=== PATIENT | female | born 1955 | race Caucasian/White ===

== ENCOUNTER 2016-10-18 20:35 | Emergency (ER) | payer BC ==
[2016-10-18 20:55] VITALS: BP 146/80
--- NOTE | 2016-10-18 21:39 | UC ---
UC General HPI - HPI Summary HPI Summary: patients nose became stuffy this afternoon, no other complaints. - History of Current Complaint Chief Complaint: UCGeneralIllness Stated Complaint: CONGESTED Time Seen by Provider: 10/18/16 21:20 Hx Obtained From: Patient Onset/Duration: Sudden Onset, Lasting Hours Timing: Constant Onset Severity: Mild Current Severity: Moderate Pain Intensity: 4 - Allergy/Home Medications Allergies/Adverse Reactions: Allergies Allergy/AdvReac Type Severity Reaction Status Date / Time Adhesive Tape Allergy Rash Verified 10/18/16 20:56 NSAIDs Allergy Unknown Verified 10/18/16 20:56 Reaction Details Povidone Iodine Allergy Rash Verified 10/18/16 20:56 [From Betadine] Pregabalin [From Lyrica] Allergy See Comment Verified 10/18/16 20:56 Sulfa Antibiotics Allergy Rash Verified 10/18/16 20:56 Home Medications: Home Medications Calcium Citrate TAB* [Citracal TAB*] 200 mg PO BID 10/18/16 [History Confirmed 10/18/16] Cholecalciferol TAB* [Vitamin D TAB*] 5,000 units PO DAILY 10/18/16 [History Confirmed 10/18/16] Cyclobenzaprine TAB* [Flexeril TAB*] 10 mg PO TID PRN 10/18/16 [History Confirmed 10/18/16] Docusate CAP* [Colace Cap*] 100 mg PO DAILY 10/18/16 [History Confirmed 10/18/16 ] Escitalopram Oxalate [Lexapro] 20 mg PO DAILY 10/18/16 [History Confirmed ] Levothyroxine TAB* [Synthroid TAB*] 100 mcg PO DAILY 10/18/16 [History Confirmed 10/18/16] Pramipexole TAB* [Mirapex TAB*] 1.5 mg PO BEDTIME 10/18/16 [History Confirmed ] Senna TAB* [Senokot TAB*] 1 tab PO DAILY 10/18/16 [History Confirmed 10/18/16] fentaNYL PATCH 12 MCG/HR * [Duragesic Patch 12 Mcg/Hr *] 12 mcg TRANSDERM Q72H 10/18/16 [History Confirmed 10/18/16] oxyCODONE TAB* [Roxycodone TAB 5 mg*] 15 mg PO Q8H PRN 10/18/16 [History Confirmed 10/18/16] PMH/Surg Hx/FS Hx/Imm Hx Previously Healthy: Yes Endocrine History Of: Reports: Thyroid Disease - Surgical History Surgical History: Yes Surgery Procedure, Year, and Place: 2 back surgeries. tubal ligation. lap band , gastric bypass. bunion removed. hernia repair. gall bladder removed - Family History Known Family History: Positive: Hypertension - Social History Alcohol Use: None Substance Use Type: None Smoking Status (MU): Never Smoked Tobacco Review of Systems Constitutional: Negative Skin: Negative Eyes: Negative ENT: Other - nasal congestion Respiratory: Negative Cardiovascular: Negative Gastrointestinal: Negative Genitourinary: Negative Motor: Negative Neurovascular: Negative Musculoskeletal: Negative Neurological: Negative Psychological: Negative All Other Systems Reviewed And Are Negative: Yes Physical Exam Triage Information Reviewed: Yes Appearance: No Pain Distress, Ill-Appearing, Obese Vital Signs: Initial Vital Signs Temp 98.8 F 10/18/16 20:49 Pulse 55 10/18/16 20:49 Resp 18 10/18/16 20:49 BP 146/80 10/18/16 20:49 Pulse Ox 97 10/18/16 20:49 Vital Signs Reviewed: Yes Eye Exam: Normal Eyes: Positive: Conjunctiva Clear ENT Exam: Normal ENT: Positive: Normal ENT inspection, Hearing grossly normal, Pharynx normal, Nasal congestion - nares red and inflammed, TMs normal Dental Exam: Normal Neck exam: Normal Neck: Positive: Supple, Nontender, No Lymphadenopathy Respiratory Exam: Normal Respiratory: Positive: Chest non-tender, Normal breath sounds, No respiratory distress, No accessory muscle use, Wheezing, Inspiration Cardiovascular Exam: Normal Cardiovascular: Positive: RRR, No Murmur, Pulses Normal Abdominal Exam: Normal Abdomen Description: Positive: Nontender, No Organomegaly, Soft Bowel Sounds: Positive: Present Musculoskeletal Exam: Normal Musculoskeletal: Positive: Strength Intact, ROM Intact, No Edema Neurological Exam: Normal Neurological: Positive: Alert, Muscle Tone Normal Psychological Exam: Normal Skin Exam: Normal Course/Dx - Course Course Of Treatment: hx obtained, exam performed, meds prescribed for nasal congestion and wheezing - Differential Dx - Multi-Symptom Provider Diagnoses: nasal congestion. wheezing Discharge - Discharge Plan Condition: Stable Disposition: HOME Patient Education Materials: Cold Symptoms (ED) Additional Instructions: start the prednisone tomorrow. I recommend using your vicks tonight to help open the nasal passages. Follow up if you develop worsening symtpoms
== END 2016-10-18 21:49 | disposition home or self-care (01) ==
LOC: MERGE 20:35 → UCCORT 20:35
DX: R09.81 Nasal congestion (principal); R06.2 Wheezing; E07.9 Disorder of thyroid, unspecified; Z98.84 Bariatric surgery status; Z90.49 Acquired absence of other specified parts of digestive tract; Z88.6 Allergy status to analgesic agent; Z88.2 Allergy status to sulfonamides
CPT/HCPCS: 99202; G0463

== ENCOUNTER 2016-12-26 06:25 | Day surgery (SDC) | payer BC ==
[~2016-12-26 06:25] MED LIST: Buffered Lidocaine 1% SYR 3ML* 3 ML/SYR SYRINGE INTRADERM ONE; Famotidine IV* 10 MG/ML 2 ML (20 mg) IV ONE; Morphine INJ* 2 MG/ML 1 ML SYRINGE IV PRN; PROCHLORPERAZINE INJ 5 MG/ML 2 ML VIAL IV PRN; oxyCODONE TAB* 5 MG TAB PO PRN
[2016-12-26] MEDS ORDERED: Famotidine IV* 10 MG/ML 2 ML (20 mg) ONE (06:29)
[2016-12-26] MEDS ORDERED: Heparin VIAL(*) 5000 UNITS/ML VIAL (FIVE THOUSAND) ONE (06:39)
[2016-12-26] MEDS ORDERED: Bupivacaine 0.25% SDV* 30 ML ONE (07:17)
[2016-12-26] MEDS ORDERED: Clindamycin 900 MG IVPREMIX(* 900 MG/50 ML SDV IV ONE (07:24)
[2016-12-26] MEDS ORDERED: Midazolam* 1 MG/ML 5 ML VIAL (5 MG) ONE (07:27)
[2016-12-26] MEDS ORDERED: KETAMINE HCL* 50 MG/ML 10 ML VIAL ONE (07:27)
[2016-12-26] MEDS ORDERED: fentaNYL* 50 MCG/ML 2 ML VIAL (100 MCG VIAL) ONE ×4 (07:27→11:37)
[2016-12-26] MEDS ORDERED: Ondansetron INJ* 2 MG/ML VIAL ONE (08:28)
[2016-12-26] MEDS ORDERED: Propofol* 10 MG/ML 20 ML BTL IV PUSH ONE (08:28)
[2016-12-26] MEDS ORDERED: Lidocaine 2% PF * 5 ML VIAL ONE (08:28)
[2016-12-26] MEDS ORDERED: Glycopyrrolate IV* 0.2 MG/ML 1 ML VIAL ONE (08:28)
[2016-12-26] MEDS ORDERED: Dexamethasone IV* 4 MG/ML 1 ML (4 MG) ONE (08:28)
[2016-12-26] MEDS ORDERED: EPHEDrine (Pressors)* 50 MG/ML VIAL ONE (08:30)
[2016-12-26] MEDS: fentaNYL* 50 MCG/ML 2 ML VIAL (100 MCG VIAL) IV PRN ×3 (11:08→11:42)
[2016-12-26] MEDS ORDERED: oxyCODONE ORAL.SOLN* 5 MG/5 ML UDC ONE (11:38)
[2016-12-26 12:39] VITALS: BP 130/82
--- NOTE | 2016-12-31 13:03 | RAD ---
INDICATION: Intraoperative fluoroscopy RIGHT hand. COMPARISON: No relevant prior exams available on the [facility] PACS for comparison. TECHNIQUE: Less than one hour fluoroscopy. FINDINGS: Spot images document resection of the trapezium. IMPRESSION: Procedural fluoroscopy. CPT II Codes: 6045F
== END 2016-12-26 13:00 | disposition home or self-care (01) ==
LOC: OREAST 06:25
PROVIDERS: ATTEND Plastic Surgery
DX: M18.11 Unilateral primary osteoarthritis of first carpometacarpal joint, right hand (principal); I10 Essential (primary) hypertension; E03.9 Hypothyroidism, unspecified; G89.29 Other chronic pain
CPT/HCPCS: 76000; 88304; 88311; A9270-GY; J1100; J1644; J2250; J2405; J2704; J3010

== ENCOUNTER 2017-02-10 10:00 | Emergency (ER) | payer BC ==
[2017-02-10 10:33] VITALS: BP 133/68
--- NOTE | 2017-02-10 11:36 | ED ---
Lower Extremity - HPI Summary HPI Summary: 61 yr old female with the complaint of Shortness of breath and worsening leg edema. She states she has been on lasix longstanding but it doesnt seem to be working now. The patient is having trouble with some blisters forming on legs, worsening edema and she is short of breath with exertion. She denies a history of CAD. She states her doctor was on jury duty today and not available. She denies chest pain. - History of Current Complaint Chief Complaint: UCLowerExtremity Stated Complaint: BILATERAL LEG/SKIN COMPLAINT Time Seen by Provider: 02/10/17 11:03 Hx Last Menstrual Period: n/a - Allergies/Home Medications Allergies/Adverse Reactions: Allergies Allergy/AdvReac Type Severity Reaction Status Date / Time Povidone Iodine Allergy Severe Rash Verified 02/10/17 10:34 [From Betadine] Pregabalin [From Lyrica] Allergy Severe See Comment Verified 02/10/17 10:34 Sulfa Antibiotics Allergy Severe Rash Verified 02/10/17 10:34 Adhesive Tape Allergy Intermediate Blisters Verified 02/10/17 10:34 [Tegaderm Dressing] Amoxicillin [From Augmentin] Allergy Intermediate Rash And Verified 02/10/17 10: 34 Itching Clavulanic Acid Allergy Intermediate Rash And Verified 02/10/17 10:34 [From Augmentin] Itching Doxycycline Allergy Intermediate Itching Verified 02/10/17 10:34 NSAIDs Allergy Intermediate ULCER/ Verified 02/10/17 10:34 GASTRIC BYPASS HISTORY SURGICAL PREP Allergy Severe ITCHY RASH Uncoded 02/10/17 10:34 BANDAID ADHESIVE Allergy Intermediate ITCHY Uncoded 02/10/17 10:34 REDNESS ENVIRONMENTAL Allergy Intermediate ITCHY Uncoded 02/10/17 10:34 WATERY EYES, STUFFY Home Medications: Home Medications Spironolactone 50 mg PO DAILY 02/10/17 [History Confirmed 02/10/17] PMH/Surg Hx/FS Hx/Imm Hx Endocrine/Hematology History: Reports: Hx Thyroid Disease, Hx Anemia - takes iron Denies: Hx Diabetes Cardiovascular History: Reports: Hx Rheumatic Fever - A CHILD Denies: Hx Hypertension, Hx Pacemaker/ICD Respiratory History: Reports: Hx Chronic Bronchitis, Hx Pneumonia, Hx Sleep Apnea GI History: Reports: Hx Gastroesophageal Reflux Disease - OCCASSIONAL, NO PRN MEDS USED, Hx Ulcer, Other GI Disorders - BARIATRIC SURGERY,RECENT 30# WT GAIN History: Denies: Hx Renal Disease Musculoskeletal History: Reports: Hx Arthritis, Hx Rheumatoid Arthritis, Hx Back Problems, Hx Bursitis - LEFT HIP, Hx Tendonitis, Other Musculoskeletal History - NECK PAIN Sensory History: Reports: Hx Contacts or Glasses - GLASSES Denies: Hx Hearing Aid Opthamlomology History: Reports: Hx Contacts or Glasses - GLASSES Neurological History: Reports: Other Neuro Impairments/Disorders - PAIN CLINIC INJECTIONS / DORSAL STIM 2013 Psychiatric History: Reports: Hx Anxiety - CONTROL WITH MEDS, Hx Depression Denies: Hx Panic Disorder - Surgical History Surgery Procedure, Year, and Place: 12/2015 L2-L3 FUSION. 08/2014 DORSAL COLUMN STIMULATOR PUT IN STIMULATOR AND BATTERY WAS REMOVED [place]/27[place] [facility] CID. 2014 SURGERY RIGHT FOOT [facility]. 04/2013 [place] [facility] RIGHT [place] - GAN[place]ION CYST[place] [facility]. 03/1985 BILATERAL [place]AL [place] [facility] [facility] 2008 CONVERTED [place] GASTRIC [place]PASS[place] [facility] LAPAROSCOPIC [place]OM[place] [facility]. 05/2011 UMBILICAL [place] [facility] 04/2012 BUNION REPAIR- RIGHT FOOT W/ SCREW, [place]. 09/2013 RIGHT FOOT HAMMER TOE REPAIR, [place]. 04/2014 Dorsal Column Stimulator Trial[place] [facility]2014 Permanent Dorsal Column Stimulator Hx Anesthesia Reactions: No Infectious Disease History: Yes Infectious Disease History: Reports: Hx Clostridium Difficile Denies: Traveled Outside the in Last 30 Days - Family History Known Family History: Positive: Hypertension - Social History Alcohol Use: None Substance Use Type: Reports: None Substance Use Comment - Amount & Last Used: fentanyl patch and oxycodone Smoking Status (MU): Never Smoked Tobacco Have You Smoked in the Last Year: No Review of Systems Constitutional: Negative Positive: Shortness Of Breath Positive: Edema - both legs Positive: Other - small blisters legs All Other Systems Reviewed And Are Negative: Yes Physical Exam Triage Information Reviewed: Yes Vital Signs On Initial Exam: Initial Vitals Temp Pulse Resp BP Pulse Ox 97.8 F 60 18 133/68 97 02/10/17 10:25 02/10/17 10:25 02/10/17 10:25 02/10/17 10:25 02/10/17 10:25 Vital Signs Reviewed: Yes Appearance: Positive: Well-Appearing, No Pain Distress Skin: Positive: Warm, Other - small blisters on legs Head/Face: Positive: Normal Head/Face Inspection Eyes: Positive: EOMI, ALEXIS ENT: Positive: Normal ENT inspection Neck: Positive: Supple, Nontender Respiratory/Lung Sounds: Positive: Decreased Breath Sounds - right base Cardiovascular: Positive: RRR. Negative: Murmur Abdomen Description: Positive: Nontender Musculoskeletal: Positive: Edema Left - leg, Edema Right - leg Neurological: Positive: Normal, Sensory/Motor Intact, Alert, Oriented to Person Place, Time, Normal Gait Diagnostics - Vital Signs Vital Signs Temp Pulse Resp BP Pulse Ox 02/10/17 10:25 97.8 F 60 18 133/68 97 - Laboratory Lab Statement: Any lab studies that have been ordered have been reviewed, and results considered in the medical decision making process. Lower Extremity Course/Dx - Course Course Of Treatment: 61 yr old with exertional shortness of breath and bilateral leg edema. She is getting worse per the patient. I recommend she go to ER by ambulance for further work up. She signed out AMA with risks of CHF, heart attack, blood clots. kidney failure, and disability understood. - Diagnoses Provider Diagnoses: Shortness of breath, Leg edema Discharge - Discharge Plan Condition: Good Disposition: AGAINST MEDICAL ADVICE Referrals: Kriss Meléndez MD [Primary Care Provider] -
== END 2017-02-10 11:20 | disposition left against medical advice (07) ==
LOC: UCCORT 10:00
DX: R06.02 Shortness of breath (principal); R60.9 Edema, unspecified; Z98.84 Bariatric surgery status; D64.9 Anemia, unspecified; F41.9 Anxiety disorder, unspecified; Z53.20 Procedure and treatment not carried out because of patient's decision for unspecified reasons
CPT/HCPCS: 99212; G0463

== ENCOUNTER → 2017-02-11 15:28 | Emergency (ER) | payer BC ==
--- NOTE | 2017-02-11 16:20 | RAD ---
Indication: Shortness of breath for several months. Comparison: December 29, 2014 Technique: Upright AP 1600 hours Report: Severe elevation of the RIGHT hemidiaphragm with interval worsening. Normal variant interposition of bowel loops between the liver and the RIGHT diaphragm as on the prior exam. Moderate RIGHT basilar atelectasis. Clear LEFT lung. Negative for pleural effusions. Negative for pneumothorax. Negative for cardiomegaly. Mild leftward shift of the mediastinum due to magnitude of RIGHT hemidiaphragm elevation. Unremarkable central pulmonary vasculature. IMPRESSION: Severe elevation of the RIGHT hemidiaphragm with interval worsening and associated partial atelectasis of the RIGHT lung and mild leftward mediastinal shift.
[2017-02-11 16:38] LABS: Hematocrit 39 % (35-47); Hemoglobin 12.8 g/dl (12.0-16.0); Mean Corpuscular HGB Conc 33 g/dl (31-36); Mean Corpuscular Hemoglobin 29 pg (27-31); Mean Corpuscular Volume 88 fL (80-97); Mean Platelet Volume 8 um3 (7.4-10.4); Red Blood Count 4.38 10^6/ul (4.0-5.4); Red Cell Distribution Width 13 % (10.5-15)
[2017-02-11 16:54] LABS: Albumin 3.6 g/dL (3.2-5.2); BUN/Creatinine Ratio 20.3 (8-20); Calcium 9.1 mg/dL (8.6-10.3); EGFR African American 132.8 (>60); EGFR Non-African American 103.3 (>60); Potassium 3.7 mmol/L (3.5-5.0); Total Bilirubin 0.5 mg/dL (0.2-1.0); Total Protein 6.6 g/dL (6.4-8.9)
[2017-02-11 17:36] VITALS: BP 117/67
--- NOTE | 2017-02-11 18:43 | ED ---
Clary Manuel Thomas, scribed for Jeff Bell MD on 02/11/17 at 1547 . Shortness of Breath - HPI Summary HPI Summary: Pt is a 61 y/o F presenting to the ED c/o SOB and pedal edema that began 4 days ago. She has had similar Sx that have been intermittent for the past year. Her SOB is greater in intensity when she also has pedal edema. In the past she has had dyspnea on exertion. She takes Lasix 40mg among other diuretics. The pt additionally c/o chronic back pain, but she says this is low in intensity and attributes this to a previous back surgery. She denies leg pain. She does not use oxygen at home. - History of Current Complaint Chief Complaint: EDShortnessOfBreath Time Seen by Provider: 02/11/17 15:41 Hx Obtained From: Patient Onset/Duration: Still Present Timing: Constant Dyspnea At: Exertion Associated Signs & Symptoms: Edema - pedal - Allergy/Home Medications Allergies/Adverse Reactions: Allergies Allergy/AdvReac Type Severity Reaction Status Date / Time Povidone Iodine Allergy Severe Rash Verified 02/10/17 10:34 [From Betadine] Pregabalin [From Lyrica] Allergy Severe See Comment Verified 02/10/17 10:34 Sulfa Antibiotics Allergy Severe Rash Verified 02/10/17 10:34 Adhesive Tape Allergy Intermediate Blisters Verified 02/10/17 10:34 [Tegaderm Dressing] Amoxicillin [From Augmentin] Allergy Intermediate Rash And Verified 02/10/17 10: 34 Itching Clavulanic Acid Allergy Intermediate Rash And Verified 02/10/17 10:34 [From Augmentin] Itching Doxycycline Allergy Intermediate Itching Verified 02/10/17 10:34 NSAIDs Allergy Intermediate ULCER/ Verified 02/10/17 10:34 GASTRIC BYPASS HISTORY SURGICAL PREP Allergy Severe ITCHY RASH Uncoded 02/10/17 10:34 BANDAID ADHESIVE Allergy Intermediate ITCHY Uncoded 02/10/17 10:34 REDNESS ENVIRONMENTAL Allergy Intermediate ITCHY Uncoded 02/10/17 10:34 WATERY EYES, STUFFY PMH/Surg Hx/FS Hx/Imm Hx Previously Healthy: No Endocrine/Hematology History: Reports: Hx Thyroid Disease, Hx Anemia - takes iron Denies: Hx Diabetes Cardiovascular History: Reports: Hx Rheumatic Fever - A CHILD Denies: Hx Hypertension, Hx Pacemaker/ICD Respiratory History: Reports: Hx Chronic Bronchitis, Hx Pneumonia, Hx Sleep Apnea GI History: Reports: Hx Gastroesophageal Reflux Disease - OCCASSIONAL, NO PRN MEDS USED, Hx Ulcer, Other GI Disorders - BARIATRIC SURGERY,RECENT 30# WT GAIN History: Denies: Hx Renal Disease Musculoskeletal History: Reports: Hx Arthritis, Hx Rheumatoid Arthritis, Hx Back Problems, Hx Bursitis - LEFT HIP, Hx Tendonitis, Other Musculoskeletal History - NECK PAIN Sensory History: Reports: Hx Contacts or Glasses - GLASSES Denies: Hx Hearing Aid Opthamlomology History: Reports: Hx Contacts or Glasses - GLASSES Neurological History: Reports: Other Neuro Impairments/Disorders - PAIN CLINIC INJECTIONS / DORSAL STIM 2013 Psychiatric History: Reports: Hx Anxiety - CONTROL WITH MEDS, Hx Depression Denies: Hx Panic Disorder - Surgical History Surgery Procedure, Year, and Place: 12/2015 L2-L3 FUSION. 08/2014 DORSAL COLUMN STIMULATOR PUT IN STIMULATOR AND BATTERY WAS REMOVED 07/27/2015 PER [facility] [place] REPORT BY DR DEL CID. 2014 SURGERY RIGHT FOOT [facility]. 04/2013 LAMINECTOMY, [facility] [place]. 1989 RIGHT HAND - GANLION CYST, [facility] [place]. 03/1985 BILATERAL TUBAL LIGATION, [facility] [place] 09/2005 LAP BAND - [facility] [place]. 2008 CONVERTED TO GASTRIC BYPASS, [facility]. LAPAROSCOPIC CHOLECYSTECTOMY, [facility] [place]. 05/2011 UMBILICAL HERNIA REPAIR, [facility] [place] 04/2012 BUNION REPAIR- RIGHT FOOT W/ SCREW, [facility]. 09/2013 RIGHT FOOT HAMMER TOE REPAIR, [place]. 04/2014 Dorsal Column Stimulator Trial, [facility] [place]. 05/2014 Permanent Dorsal Column Stimulator Hx Anesthesia Reactions: No Infectious Disease History: No Infectious Disease History: Reports: Hx Clostridium Difficile Denies: Traveled Outside the [place] in Last 30 Days - Family History Known Family History: Positive: Hypertension - Social History Alcohol Use: None Substance Use Type: Reports: None Substance Use Comment - Amount & Last Used: fentanyl patch and oxycodone Smoking Status (MU): Never Smoked Tobacco Have You Smoked in the Last Year: No Review of Systems Constitutional: Negative Eyes: Negative ENT: Negative Cardiovascular: Negative Positive: Shortness Of Breath, Other - POS: dyspnea on exertion Gastrointestinal: Negative Positive: Other - NEG: leg pain Genitourinary: Negative Positive: Edema - pedal, Other - POS: back pain, chronic, low intensity in the ED, attributed to back surgery Skin: Negative Neurological: Negative Psychological: Normal All Other Systems Reviewed And Are Negative: Yes Physical Exam Triage Information Reviewed: Yes Vital Signs On Initial Exam: Initial Vitals Temp Pulse Resp BP Pulse Ox 98 F 64 20 147/80 93 02/11/17 15:31 02/11/17 15:31 02/11/17 15:31 02/11/17 15:31 02/11/17 15:31 Vital Signs Reviewed: Yes Appearance: Positive: Well-Appearing, No Pain Distress Skin: Positive: Warm, Skin Color Reflects Adequate Perfusion, Dry Head/Face: Positive: Normal Head/Face Inspection Eyes: Positive: Normal ENT: Positive: Normal ENT inspection Neck: Positive: Supple, Nontender Respiratory/Lung Sounds: Positive: Breath Sounds Present, Other - POS: some crackles heard at base but otherwise normal Cardiovascular: Positive: RRR, Leg Edema Left - 2+ pitting edema, Leg Edema Right - 2+ pitting edema Abdomen Description: Positive: Nontender, Soft Bowel Sounds: Positive: Present Musculoskeletal: Positive: Normal Neurological: Positive: Normal, Sensory/Motor Intact, Alert, Oriented to Person Place, Time, CN Intact II-III Psychiatric: Positive: Normal, Affect/Mood Appropriate Diagnostics - Vital Signs Vital Signs Temp Pulse Resp BP Pulse Ox 02/11/17 15:34 98.0 F 68 20 147/80 91 02/11/17 15:31 98 F 64 20 147/80 93 - Laboratory Lab Results: Lab Results 02/11/17 02/11/17 02/11/17 Range/Units 16:24 16:24 16:24 WBC 9.0 (3.5-10.8) 10^3/ul RBC 4.38 (4.0-5.4) 10^6/ul Hgb 12.8 (12.0-16.0) g/dl Hct 39 (35-47) % MCV 88 (80-97) fL MCH 29 (27-31) pg MCHC 33 (31-36) g/dl RDW 13 (10.5-15) % Plt Count 209 (150-450) 10^3/ul MPV 8 (7.4-10.4) um3 Neut % (Auto) 70.2 (38-83) % Lymph % (Auto) 21.2 L (25-47) % [place] % (Auto) 7.1 (1-9) % Eos % (Auto) 0.8 (0-6) % Baso % (Auto) 0.7 (0-2) % Absolute Neuts (auto) 6.3 (1.5-7.7) 10^3/ul Absolute Lymphs (auto) 1.9 (1.0-4.8) 10^3/ul Absolute Monos (auto) 0.6 (0-0.8) 10^3/ul Absolute Eos (auto) 0.1 (0-0.6) 10^3/ul Absolute Basos (auto) 0.1 (0-0.2) 10^3/ul Absolute Nucleated RBC 0 10^3/ul Nucleated RBC % 0 Sodium 136 (133-145) mmol/L Potassium 3.7 (3.5-5.0) mmol/L Chloride 99 L (101-111) mmol/L Carbon Dioxide 35 H (22-32) mmol/L Anion Gap 2 (2-11) mmol/L BUN 12 (6-24) mg/dL Creatinine 0.59 (0.51-0.95) mg/dL Est GFR ( Amer) 132.8 (>60) Est GFR (Non-Af Amer) 103.3 (>60) BUN/Creatinine Ratio 20.3 H (8-20) Glucose 90 (70-100) mg/dL Lactic Acid 0.8 (0.5-2.0) mmol/L Calcium 9.1 (8.6-10.3) mg/dL Total Bilirubin 0.50 (0.2-1.0) mg/dL AST 22 (13-39) U/L ALT 18 (7-52) U/L Alkaline Phosphatase 75 (34-104) U/L Troponin I 0.00 (<0.04) ng/mL B-Natriuretic Peptide ( - 100) pg/mL Total Protein 6.6 (6.4-8.9) g/dL Albumin 3.6 (3.2-5.2) g/dL Globulin 3.0 (2-4) g/dL Albumin/Globulin Ratio 1.2 (1-3) 02/11/17 Range/Units 16:24 WBC (3.5-10.8) 10^3/ul RBC (4.0-5.4) 10^6/ul Hgb (12.0-16.0) g/dl Hct (35-47) % MCV (80-97) fL MCH (27-31) pg MCHC (31-36) g/dl RDW (10.5-15) % Plt Count (150-450) 10^3/ul MPV (7.4-10.4) um3 Neut % (Auto) (38-83) % Lymph % (Auto) (25-47) % [place] % (Auto) (1-9) % Eos % (Auto) (0-6) % Baso % (Auto) (0-2) % Absolute Neuts (auto) (1.5-7.7) 10^3/ul Absolute Lymphs (auto) (1.0-4.8) 10^3/ul Absolute Monos (auto) (0-0.8) 10^3/ul Absolute Eos (auto) (0-0.6) 10^3/ul Absolute Basos (auto) (0-0.2) 10^3/ul Absolute Nucleated RBC 10^3/ul Nucleated RBC % Sodium (133-145) mmol/L Potassium (3.5-5.0) mmol/L Chloride (101-111) mmol/L Carbon Dioxide (22-32) mmol/L Anion Gap (2-11) mmol/L BUN (6-24) mg/dL Creatinine (0.51-0.95) mg/dL Est GFR ( Amer) (>60) Est GFR (Non-Af Amer) (>60) BUN/Creatinine Ratio (8-20) Glucose (70-100) mg/dL Lactic Acid (0.5-2.0) mmol/L Calcium (8.6-10.3) mg/dL Total Bilirubin (0.2-1.0) mg/dL AST (13-39) U/L ALT (7-52) U/L Alkaline Phosphatase (34-104) U/L Troponin I (<0.04) ng/mL B-Natriuretic Peptide 24 ( - 100) pg/mL Total Protein (6.4-8.9) g/dL Albumin (3.2-5.2) g/dL Globulin (2-4) g/dL Albumin/Globulin Ratio (1-3) Result Diagrams: 02/11/17 16:24 02/11/17 16:24 Lab Statement: Any lab studies that have been ordered have been reviewed, and results considered in the medical decision making process. - Radiology CXR Xray Interpretation: Positive (See Comments) - Severe elevation of the RIGHT hemidiaphragm with interval worsening and associated partial atelectasis of the RIGHT lung and mild leftward mediastinal shift. Radiology Interpretation Completed By: Radiologist - EKG 1537 Cardiac Rate: NL - 60 BPM EKG Interpretation: Sinus Rhythm. Non-specific ST changes. Re-Evaluation - Re-Evaluation First Eval Re-Evaluation Time: 17:08 Change: Improved - doing a little better Second Eval Re-Evaluation Time: 17:15 Change: Unchanged Course/Dx - Course Course Of Treatment: Ms. Marciano Lomeli presented with intermittent SOB and leg swelling for at least the last 4 days. Her SPO2 was low on arrival and she was placed on O2. She had some pitting edema but no pulmonarry edema on exam or CXR. She has a chronically elevated right hemidiaphram and this had progressed from the last CXR we have from . It is quite large and may be whifting her mediastinum some. This is an issue that will need to be followed up closely but nothing to be done now. I will increase her lasix for a few days and have her F/U. - Diagnoses Provider Diagnoses: Peripheral edema - Physician Notifications Discussed Care of Patient With: Ronan Daniel Time Discussed With Above Provider: 17:12 Instructed by Provider To: Other - Discussed case. Discharge - Discharge Plan Condition: Stable Disposition: HOME Prescriptions: Furosemide IV* [Lasix IV*] 40 mg .SEE ORDER DAILY #30 ml Patient Education Materials: Edema (ED) Referrals: Kriss Meléndez MD [Primary Care Provider] - 3 Days Additional Instructions: Take medication twice a day for three days, then back to once a day. The documentation as recorded by the Clary baker Thomas accurately reflects the service I personally performed and the decisions made by me, Jeff Bell MD.
== END | disposition home or self-care (01) ==
LOC: ED 15:28
DX: R60.9 Edema, unspecified (principal); R06.02 Shortness of breath; M54.9 Dorsalgia, unspecified
CPT/HCPCS: 36415; 71010; 80053; 83605; 83880; 84484; 85025; 87040; 93005; 99283

== ENCOUNTER 2017-03-02 10:54 | Emergency (ER) | payer BC, MEDICARE ==
[2017-03-02 11:50] LABS: Hematocrit 40 % (35-47); Hemoglobin 13.2 g/dl (12.0-16.0); Mean Corpuscular HGB Conc 33 g/dl (31-36); Mean Corpuscular Hemoglobin 29 pg (27-31); Mean Corpuscular Volume 88 fL (80-97); Mean Platelet Volume 8 um3 (7.4-10.4); Red Blood Count 4.56 10^6/ul (4.0-5.4); Red Cell Distribution Width 13 % (10.5-15); White Blood Count 4.9 10^3/ul (3.5-10.8)
[2017-03-02 12:05] LABS: Albumin 3.8 g/dL (3.2-5.2); BUN/Creatinine Ratio 18.3 (8-20); Calcium 9.2 mg/dL (8.6-10.3); EGFR African American 130.3 (>60); EGFR Non-African American 101.3 (>60); Globulin 3.2 g/dL (2-4); Potassium 4.1 mmol/L (3.5-5.0); Total Bilirubin 0.5 mg/dL (0.2-1.0)
--- NOTE | 2017-03-02 12:42 | RAD ---
Indication: Dyspnea on exertion Comparison is made with previous exam dated February 11, 2017. 2 views of the chest are reviewed. There is elevated right hemidiaphragm with interposed colon which is unchanged from previous exam. Lung williamson otherwise appear clear. No pleural fluid or pneumonia is noted. IMPRESSION: Chronic elevated diaphragm without evidence of pneumonia.
--- NOTE | 2017-03-02 13:31 | ED ---
HPI Cardiac - HPI Summary HPI Summary: Pt here w/ SOB and LUCIO x 1 year and worse over past 6 months. Came in today because when she sat to rest from LUCIO this morning with minimal activity, she became more SOB. Breathes easier with standing and sitting upright. Denies fever , chills, N/V/D, ab pain, chest pain, cough, wheezing. - History of Current Complaint Chief Complaint: EDShortnessOfBreath Stated Complaint: DIFF BREATHING Time Seen by Provider: 03/02/17 11:13 Hx Obtained From: Patient, Family/Setter Off - Pain Intensity: 3 - Allergy/Home Medications Allergies/Adverse Reactions: Allergies Allergy/AdvReac Type Severity Reaction Status Date / Time Povidone Iodine Allergy Severe Rash Verified 03/02/17 11:18 [From Betadine] Pregabalin [From Lyrica] Allergy Severe See Comment Verified 03/02/17 11:18 Sulfa Antibiotics Allergy Severe Rash Verified 03/02/17 11:18 Adhesive Tape Allergy Intermediate Blisters Verified 03/02/17 11:18 [Tegaderm Dressing] Amoxicillin [From Augmentin] Allergy Intermediate Rash And Verified 03/02/17 11: 18 Itching Clavulanic Acid Allergy Intermediate Rash And Verified 03/02/17 11:18 [From Augmentin] Itching Doxycycline Allergy Intermediate Itching Verified 03/02/17 11:18 NSAIDs Allergy Intermediate ULCER/ Verified 03/02/17 11:18 GASTRIC BYPASS HISTORY SURGICAL PREP Allergy Severe ITCHY RASH Uncoded 03/02/17 11:18 BANDAID ADHESIVE Allergy Intermediate ITCHY Uncoded 03/02/17 11:18 REDNESS ENVIRONMENTAL Allergy Intermediate ITCHY Uncoded 03/02/17 11:18 WATERY EYES, STUFFY PMH/Surg Hx/FS Hx/Imm Hx Previously Healthy: Yes Endocrine/Hematology History: Reports: Hx Thyroid Disease, Hx Anemia - takes iron Denies: Hx Diabetes Cardiovascular History: Reports: Hx Rheumatic Fever - A CHILD Denies: Hx Hypertension, Hx Pacemaker/ICD Respiratory History: Reports: Hx Chronic Bronchitis, Hx Pneumonia, Hx Sleep Apnea GI History: Reports: Hx Gastroesophageal Reflux Disease - OCCASSIONAL, NO PRN MEDS USED, Hx Ulcer, Other GI Disorders - bariatric surgery History: Denies: Hx Renal Disease Musculoskeletal History: Reports: Hx Arthritis, Hx Rheumatoid Arthritis, Hx Back Problems, Hx Bursitis - LEFT HIP, Hx Tendonitis, Other Musculoskeletal History - NECK PAIN Sensory History: Reports: Hx Contacts or Glasses - GLASSES Denies: Hx Hearing Aid Opthamlomology History: Reports: Hx Contacts or Glasses - GLASSES Neurological History: Reports: Other Neuro Impairments/Disorders - PAIN CLINIC INJECTIONS / DORSAL STIM 2013 Psychiatric History: Reports: Hx Anxiety - CONTROL WITH MEDS, Hx Depression Denies: Hx Panic Disorder - Surgical History Surgery Procedure, Year, and Place: 12/2015 L2-L3 FUSION. 08/2014 DORSAL COLUMN STIMULATOR PUT IN STIMULATOR AND BATTERY WAS REMOVED 07/27/2015 [place] [facility] [place] CID. 2014 SURGERY RIGHT FOOT [facility]. 04/2013 LAMINECTOMY, [facility] [place]. 1989 RIGHT HAND - GANLION CYST, [facility] [place]. 03/1985 BILATERAL TUBAL LIGATION, [facility] [place]2005 LAP BAND - [facility] [place] 2008 CONVERTED TO GASTRIC BYPASS, [facility] [place]. LAPAROSCOPIC CHOLECYSTECTOMY, [facility] [place] 05/2011 UMBILICAL HERNIA REPAIR, [facility] [place]. 04/2012 BUNION REPAIR- RIGHT FOOT W/ SCREW, [place]. 09/2013 RIGHT FOOT HAMMER TOE REPAIR, [place]. 04/2014 Dorsal Column Stimulator Trial, [facility] [place]. 05/2014 Permanent Dorsal Column Stimulator Hx Anesthesia Reactions: No Infectious Disease History: No Infectious Disease History: Reports: Hx Clostridium Difficile Denies: Traveled Outside the [place] in Last 30 Days - Family History Known Family History: Positive: Hypertension - Social History Lives: With Family Alcohol Use: None Hx Substance Use: No Substance Use Type: Reports: None Substance Use Comment - Amount & Last Used: fentanyl patch and oxycodone Hx Tobacco Use: No Smoking Status (MU): Never Smoked Tobacco Have You Smoked in the Last Year: No Review of Systems Constitutional: Negative Negative: Sore Throat, Ear Ache, Nasal Discharge Negative: Palpitations, Chest Pain Positive: Shortness Of Breath - see HPI Negative: Abdominal Pain, Vomiting, Diarrhea, Nausea Positive: no symptoms reported Musculoskeletal: Negative Skin: Negative Neurological: Negative Psychological: Normal All Other Systems Reviewed And Are Negative: Yes Physical Exam Triage Information Reviewed: Yes Vital Signs On Initial Exam: Initial Vitals Temp Pulse Resp BP Pulse Ox 97.9 F 56 20 141/80 93 03/02/17 11:01 03/02/17 11:01 03/02/17 11:01 03/02/17 11:01 03/02/17 11:01 Vital Signs Reviewed: Yes Appearance: Positive: Well-Appearing, No Pain Distress, Obese Skin: Positive: Warm, Dry Head/Face: Positive: Normal Head/Face Inspection - Sinuses NTTP Eyes: Positive: Normal, EOMI, Conjunctiva Clear. Negative: Conjunctiva Inflammed, Discharge ENT: Positive: Normal ENT inspection, Hearing grossly normal, Pharynx normal, TMs normal. Negative: Nasal congestion, Nasal drainage, Tonsillar swelling, Tonsillar exudate Dental: Negative: Abscess @ Neck: Positive: Supple, Nontender, No Lymphadenopathy Respiratory/Lung Sounds: Positive: Clear to Auscultation, Decreased Breath Sounds - decreased breath sounds over Rt lower and mid lobe. Negative: Rales, Rhonchi, Stridor, Wheezes, Other - dyspnea, tachypnea at rest Cardiovascular: Positive: Normal, RRR, Leg Edema Left, Leg Edema Right - mild erythema of B/L LE's - NTTP, S1, S2. Negative: Murmur, Rub Abdomen Description: Positive: Nontender, No Organomegaly, Soft Bowel Sounds: Positive: Present Musculoskeletal: Positive: Normal, Strength/ROM Intact Neurological: Positive: Normal, Sensory/Motor Intact, Alert, Oriented to Person Place, Time, CN Intact II-III Psychiatric: Positive: Normal - Paul Coma Scale Coma Scale Total: 15 Diagnostics - Vital Signs Vital Signs Temp Pulse Resp BP Pulse Ox 03/02/17 13:00 47 138/70 95 03/02/17 12:33 56 130/72 97 03/02/17 12:08 51 97 03/02/17 12:04 119/67 03/02/17 11:57 53 96 03/02/17 11:44 95 03/02/17 11:16 58 18 95 03/02/17 11:01 97.9 F 56 20 141/80 93 - Laboratory Lab Results: Lab Results 03/02/17 03/02/17 03/02/17 Range/Units 11:42 11:42 11:42 WBC 4.9 (3.5-10.8) 10^3/ul RBC 4.56 (4.0-5.4) 10^6/ul Hgb 13.2 (12.0-16.0) g/dl Hct 40 (35-47) % MCV 88 (80-97) fL MCH 29 (27-31) pg MCHC 33 (31-36) g/dl RDW 13 (10.5-15) % Plt Count 183 (150-450) 10^3/ul MPV 8 (7.4-10.4) um3 Neut % (Auto) 57.4 (38-83) % Lymph % (Auto) 32.1 (25-47) % [place] % (Auto) 8.0 (1-9) % Eos % (Auto) 1.8 (0-6) % Baso % (Auto) 0.7 (0-2) % Absolute Neuts (auto) 2.8 (1.5-7.7) 10^3/ul Absolute Lymphs (auto) 1.6 (1.0-4.8) 10^3/ul Absolute Monos (auto) 0.4 (0-0.8) 10^3/ul Absolute Eos (auto) 0.1 (0-0.6) 10^3/ul Absolute Basos (auto) 0 (0-0.2) 10^3/ul Absolute Nucleated RBC 0 10^3/ul Nucleated RBC % 0.1 INR (Anticoag Therapy) (0.89-1.11) APTT (26.0-36.3) seconds Sodium 138 (133-145) mmol/L Potassium 4.1 (3.5-5.0) mmol/L Chloride 99 L (101-111) mmol/L Carbon Dioxide 33 H (22-32) mmol/L Anion Gap 6 (2-11) mmol/L BUN 11 (6-24) mg/dL Creatinine 0.60 (0.51-0.95) mg/dL Est GFR ( Amer) 130.3 (>60) Est GFR (Non-Af Amer) 101.3 (>60) BUN/Creatinine Ratio 18.3 (8-20) Glucose 94 (70-100) mg/dL Lactic Acid 0.6 (0.5-2.0) mmol/L Calcium 9.2 (8.6-10.3) mg/dL Magnesium 2.0 (1.9-2.7) mg/dL Total Bilirubin 0.50 (0.2-1.0) mg/dL AST 22 (13-39) U/L ALT 17 (7-52) U/L Alkaline Phosphatase 74 (34-104) U/L Troponin I 0.00 (<0.04) ng/mL B-Natriuretic Peptide ( - 100) pg/mL Total Protein 7.0 (6.4-8.9) g/dL Albumin 3.8 (3.2-5.2) g/dL Globulin 3.2 (2-4) g/dL Albumin/Globulin Ratio 1.2 (1-3) TSH Pending Blood Type Antibody Screen 03/02/17 03/02/17 03/02/17 Range/Units 11:42 11:42 11:42 WBC (3.5-10.8) 10^3/ul RBC (4.0-5.4) 10^6/ul Hgb (12.0-16.0) g/dl Hct (35-47) % MCV (80-97) fL MCH (27-31) pg MCHC (31-36) g/dl RDW (10.5-15) % Plt Count (150-450) 10^3/ul MPV (7.4-10.4) um3 Neut % (Auto) (38-83) % Lymph % (Auto) (25-47) % [place] % (Auto) (1-9) % Eos % (Auto) (0-6) % Baso % (Auto) (0-2) % Absolute Neuts (auto) (1.5-7.7) 10^3/ul Absolute Lymphs (auto) (1.0-4.8) 10^3/ul Absolute Monos (auto) (0-0.8) 10^3/ul Absolute Eos (auto) (0-0.6) 10^3/ul Absolute Basos (auto) (0-0.2) 10^3/ul Absolute Nucleated RBC 10^3/ul Nucleated RBC % INR (Anticoag Therapy) 0.96 (0.89-1.11) APTT 31.4 (26.0-36.3) seconds Sodium (133-145) mmol/L Potassium (3.5-5.0) mmol/L Chloride (101-111) mmol/L Carbon Dioxide (22-32) mmol/L Anion Gap (2-11) mmol/L BUN (6-24) mg/dL Creatinine (0.51-0.95) mg/dL Est GFR ( Amer) (>60) Est GFR (Non-Af Amer) (>60) BUN/Creatinine Ratio (8-20) Glucose (70-100) mg/dL Lactic Acid (0.5-2.0) mmol/L Calcium (8.6-10.3) mg/dL Magnesium (1.9-2.7) mg/dL Total Bilirubin (0.2-1.0) mg/dL AST (13-39) U/L ALT (7-52) U/L Alkaline Phosphatase (34-104) U/L Troponin I (<0.04) ng/mL B-Natriuretic Peptide 45 ( - 100) pg/mL Total Protein (6.4-8.9) g/dL Albumin (3.2-5.2) g/dL Globulin (2-4) g/dL Albumin/Globulin Ratio (1-3) TSH Blood Type A Negative Antibody Screen Negative Result Diagrams: 03/02/17 11:42 03/02/17 11:42 Lab Statement: Any lab studies that have been ordered have been reviewed, and results considered in the medical decision making process. Re-Evaluation - Re-Evaluation First Eval Change: Improved - w/ 2L 02 - more relaxed Disposition - Course Course Of Treatment: Pt presents w/ acute on chronic SOB this morning. Breathing better with holding herself upright. After many tests, no life threatening issues are apparent. CXR confirms diaphragm eventration which she reported at begining of visit - image appears same or better compared to CXR from 02/11. CTA is neg for PE as is D-dimer (neg DVT, PE, dissection) - does reveal "slight interstitial markings which may represent pulmonary congestion". Discussed w/ Dr. Downing - given all tests ordered and reviewed today in conjunction with pt's clinical presentation, she will be discharged today to f/ u outpt w/ sheep boner Friday as she's of sound mind to recognize danger s/ sx as is her . Pt states she feels safe to go home today. Road tested ambulation w/o O2 via nasal canula and pulse ox did not drop below 93%. Pt tolerated well and was not dyspnic. Feels safe to return home and f/u w/ Pulmonology this week as scheduled. Reviewed danger s/sx of when to return to ED. NOTE: bradycardia is baseline for her. ECG w/o electrical block or signs of OK. No CV risk factors other than obesity. - Diagnoses Provider Diagnoses: Dyspnea, Diaphragm, eventration Discharge - Discharge Plan Condition: Stable Disposition: HOME Patient Education Materials: Dyspnea (ED) Referrals: Kriss Meléndez MD [Primary Care Provider] - Additional Instructions: The cause of your shortness of breath was not definitively identified here today however it is suspected that your diaphragm deformity may be contributing. You were also found to have mild pulmonary vessel congestion - please discuss with your sheep boner this week. In the meantime, rest and avoid excess salt intake to prevent fluid retention. Make sure to eat adequate protein. May recommend liquid diet to avoid abdominal bloating which may make more gas in abdomen, pushing up into diaphragm. *If you develop worsening of symptoms, return to ED
[2017-03-02 13:33] LABS: TSH (Thyroid Stimulating Horm) 4.71 mcIU/mL (0.34-5.60)
[2017-03-02] MEDS ORDERED: Iohexol 350* (CONTRAST) 500 ML MDV IV ONE (13:38)
--- NOTE | 2017-03-02 14:16 | RAD ---
Indication: Shortness of breath, dyspnea. Contrast: Administered 85.8 ml of Contrast -- mgi/ml CTA of the chest was performed after IV contrast administration. Coronal and sagittal reconstructed images were obtained. The pulmonary arterial tree is well opacified. There are no filling defects present to suggest pulmonary embolus. There is no mediastinal or hilar adenopathy. The heart demonstrates no pericardial effusion. The trachea and major bronchi appear patent. Mild interstitial edema consistent with vascular congestion is noted. No alveolar consolidation is noted. Bibasilar atelectasis is noted. There is an elevated right hemidiaphragm noted. The visualized abdominal organs are otherwise normal. IMPRESSION: NO DEFINITE PULMONARY EMBOLUS IS NOTED. SLIGHTLY PROMINENT INTERSTITIAL MARKINGS MAY REPRESENT VASCULAR CONGESTION. CLINICAL CORRELATION IS SUGGESTED.
[2017-03-02 15:34] VITALS: BP 133/58
== END 2017-03-02 15:55 | disposition home or self-care (01) ==
LOC: ED 10:54
DX: R06.00 Dyspnea, unspecified (principal); R06.02 Shortness of breath; Q79.1 Other congenital malformations of diaphragm
CPT/HCPCS: 36415; 71020; 71275; 80053; 83605; 83735; 83880; 84443; 84484; 85025; 85379; 85610; 85730; 86850; 86900; 86901; 93005; 99282; Q9967

== ENCOUNTER 2017-06-13 13:54 | Emergency (ER) | payer MEDICARE, OTHER | END 2017-06-13 14:15 | disposition left against medical advice (07) | LOC: UCCORT 13:54 | DX: L98.9 Disorder of the skin and subcutaneous tissue, unspecified (principal); Z53.21 Procedure and treatment not carried out due to patient leaving prior to being seen by health care provider ==

== ENCOUNTER 2017-06-13 17:47 | Emergency (ER) | payer MEDICARE, OTHER ==
[2017-06-13] MEDS ORDERED: methylPREDNISolone 125 MG* 2 ML VIAL IM ONE (20:41)
[2017-06-13 20:46] VITALS: BP 145/67
--- NOTE | 2017-06-13 20:51 | UC ---
Skin Complaint HPI - HPI Summary HPI Summary: Patient was working in the yard, has developed a rash on both arms, that is spreading, now on abdomen and neck, hive like - History of Current Complaint Chief Complaint: UCSkin Time Seen by Provider: 06/13/17 20:33 Stated Complaint: SKIM COMP Hx Obtained From: Patient Hx Last Menstrual Period: n/a ?: No Onset/Duration: Sudden Onset, Lasting Hours Skin Exposure Onset/Duration: Hours Ago Timing: Constant Onset Severity: Mild Current Severity: Moderate Location: Diffuse Character: Swelling, Pruritus, Hives, Redness Aggravating Factor(s): Nothing Alleviating Factor(s): Unknown Related History: Possible Reaction to: Environmental Exposure - Allergy/Home Medications Allergies/Adverse Reactions: Allergies Allergy/AdvReac Type Severity Reaction Status Date / Time Povidone Iodine Allergy Severe Rash Verified 06/13/17 20:06 [From Betadine] Pregabalin [From Lyrica] Allergy Severe See Comment Verified 06/13/17 20:06 Sulfa Antibiotics Allergy Severe Rash Verified 06/13/17 20:06 Adhesive Tape Allergy Intermediate Blisters Verified 06/13/17 20:06 [Tegaderm Dressing] Amoxicillin [From Augmentin] Allergy Intermediate Rash And Verified 06/13/17 20: 06 Itching Clavulanic Acid Allergy Intermediate Rash And Verified 06/13/17 20:06 [From Augmentin] Itching Doxycycline Allergy Intermediate Itching Verified 06/13/17 20:06 NSAIDs Allergy Intermediate ULCER/ Verified 06/13/17 20:06 GASTRIC BYPASS HISTORY SURGICAL PREP Allergy Severe ITCHY RASH Uncoded 06/13/17 20:06 BANDAID ADHESIVE Allergy Intermediate ITCHY Uncoded 06/13/17 20:06 REDNESS ENVIRONMENTAL Allergy Intermediate ITCHY Uncoded 06/13/17 20:06 WATERY EYES, STUFFY Review of Systems Constitutional: Negative Skin: Rash Eyes: Negative ENT: Negative Respiratory: Negative Cardiovascular: Negative Gastrointestinal: Negative Genitourinary: Negative Motor: Negative Neurovascular: Negative Musculoskeletal: Negative Neurological: Negative Psychological: Negative Is Patient Immunocompromised?: No All Other Systems Reviewed And Are Negative: Yes PMH/Surg Hx/FS Hx/Imm Hx Previously Healthy: Yes - Surgical History Surgical History: Yes Surgery Procedure, Year, and Place: 12/2015 L2-L3 FUSION. 08/2014 DORSAL COLUMN STIMULATOR PUT IN STIMULATOR AND BATTERY WAS REMOVED 07/27[place] [facility] [place]. 2015 SURGERY RIGHT FOOT [facility]. 04/2013 [place] [facility] [place] - GAN[place]ION CYST[place] [facility] [place]. [place]1985 BILATERAL TUBAL [place]IGATION, [facility] [place] LAP [place] - [facility] [place]. 2008 CONVERTED TO GASTRIC BYPASS, [facility] [place] LAPAROSCOPIC CHOLECYSTECTOMY, [facility] [place]. 05/2011 UMBILICAL HERNIA [place]PAIR, [facility] [place] 04/2012 BUNION REPAIR- RIGHT FOOT W/ SCREW, [place]. 09/2013 RIGHT FOOT HAMMER TOE REPAIR, [place]. 04/2014 Dorsal Column Stimulator Trial, [facility] [place] Permanent Dorsal Column Stimulator - Family History Known Family History: Positive: Hypertension - Social History Alcohol Use: None Substance Use Type: None Substance Use Comment - Amount & Last Used: fentanyl patch and oxycodone Smoking Status (MU): Never Smoked Tobacco Have You Smoked in the Last Year: No - Immunization History Most Recent Influenza Vaccination: 04/2017 Physical Exam Triage Information Reviewed: Yes Appearance: Well-Appearing, Well-Nourished, Pain Distress Vital Signs: Initial Vital Signs Temp 97.5 F 06/13/17 19:59 Pulse 52 06/13/17 19:59 Resp 17 06/13/17 19:59 BP 145/67 06/13/17 19:59 Pulse Ox 98 06/13/17 19:59 Vital Signs Reviewed: Yes Eye Exam: Normal ENT Exam: Normal Dental Exam: Normal Neck exam: Normal Respiratory Exam: Normal Respiratory: Positive: Chest non-tender, Lungs clear, Normal breath sounds Cardiovascular Exam: Normal Cardiovascular: Positive: RRR, No Murmur, Pulses Normal Abdominal Exam: Normal Abdomen Description: Positive: Nontender, No Organomegaly, Soft Bowel Sounds: Positive: Present Musculoskeletal Exam: Normal Musculoskeletal: Positive: Strength Intact, ROM Intact, No Edema Neurological Exam: Normal Neurological: Positive: Alert, Muscle Tone Normal Psychological Exam: Normal Skin: Positive: rashes - on bilateral arms, neck and right side of abdomen, liu like, small evidnece of scratching noted. Course/Dx - Course Course Of Treatment: hx obtained, exam performed ,meds reviewed, solumedrol given, prednisone taper prescribed. patient does have derm appointment scheduled for friday, adivsed to keep for follow up. - Differential Diagnoses - Skin Complaint Differential Diagnoses: Abscess, Cellulitis, Contact Dermatitis, Drug Rash, Urticaria - Diagnoses Provider Diagnoses: contact dermatitis. uriticaria Discharge - Discharge Plan Condition: Stable Disposition: HOME Prescriptions: predniSONE TAB* [Deltasone TAB*] 20 mg PO DAILY #15 tab Patient Education Materials: Contact Dermatitis (ED) Referrals: Kriss Meléndez MD [Primary Care Provider] -
== END 2017-06-13 20:57 | disposition home or self-care (01) ==
LOC: UCCORT 17:47
DX: L50.9 Urticaria, unspecified (principal); L25.9 Unspecified contact dermatitis, unspecified cause; Z88.2 Allergy status to sulfonamides; Z88.8 Allergy status to other drugs, medicaments and biological substances; Z88.1 Allergy status to other antibiotic agents; Z88.6 Allergy status to analgesic agent; Z91.048 Other nonmedicinal substance allergy status; J30.2 Other seasonal allergic rhinitis; Z98.84 Bariatric surgery status
CPT/HCPCS: 96372; 99212; G0463; J2930

== ENCOUNTER 2018-02-23 09:55 | Emergency (ER) | payer MEDICARE, OTHER ==
[2018-02-23 10:44] VITALS: BP 129/66
--- NOTE | 2018-02-23 11:43 | UC ---
Lower Extremity/Ankle HPI - HPI Summary HPI Summary: The patient is a 62-year-old female with chronic lower extremity edema. She has noticed increased swelling redness and pain to the medial aspect of her foot. She has no fever. She is experiencing some malaise. He states she is not a diabetic. He has also had a lesion on her tongue for over 3 months. - History of Current Complaint Chief Complaint: UCLowerExtremity Stated Complaint: LEG PAIN Hx Obtained From: Patient Hx Last Menstrual Period: n/a Onset/Duration: Gradual Onset, Lasting Days Severity Initially: Mild Severity Currently: Mild Pain Intensity: 4 Pain Scale Used: 0-10 Numeric Aggravating Factor(s): Standing Alleviating Factor(s): Rest Able to Bear Weight: Yes - Allergies/Home Medications Allergies/Adverse Reactions: Allergies Allergy/AdvReac Type Severity Reaction Status Date / Time Adhesive Tape Allergy Intermediate Blisters Verified 02/23/18 10:29 [Tegaderm Dressing] amoxicillin [From Augmentin] Allergy Rash And Verified 02/23/18 10:29 Itching clavulanic acid Allergy Rash And Verified 02/23/18 10:29 [From Augmentin] Itching doxycycline Allergy Itching Verified 02/23/18 10:29 NSAIDS (Non-Steroidal Allergy ulcers, Hx Verified 02/23/18 10:29 Anti-Inflamma gastric bypass povidone-iodine Allergy Rash Verified 02/23/18 10:29 [From Betadine] pregabalin [From Lyrica] Allergy Anxiety Verified 02/23/18 10:29 soap [From Betadine] Allergy Rash Verified 02/23/18 10:29 Sulfa (Sulfonamide Allergy Rash Verified 02/23/18 10:29 Antibiotics) SURGICAL PREP Allergy Severe ITCHY RASH Uncoded 02/23/18 10:29 BANDAID ADHESIVE Allergy Intermediate ITCHY Uncoded 10/24/17 16:46 REDNESS ENVIRONMENTAL Allergy Intermediate ITCHY Uncoded 10/24/17 16:46 WATERY EYES, STUFFY PMH/Surg Hx/FS Hx/Imm Hx Previously Healthy: Yes - Surgical History Surgical History: Yes Surgery Procedure, Year, and Place: R foot surgery Aug 2017. 12/2015 L2-L3 FUSION. 08/2014 DORSAL COLUMN STIMULATOR PUT IN STIMULATOR AND BATTERY WAS REMOVED 07/27/2015 PER [facility] [place] BY DR DEL CID. 2014 SURGERY RIGHT FOOT [facility]. 04/2013 LAMINECTOMY, [facility] [place]. 1989 RIGHT HAND - GANLION CYST, [facility] [place]. 03/1985 BILATERAL TUBAL LIGATION, [facility] [place] 09/2005 LAP BAND - [facility] [place]. 2008 CONVERTED TO GASTRIC BYPASS, [facility] [place]. 01/2010 LAPAROSCOPIC CHOLECYSTECTOMY, [facility] [place]. 05/2011 UMBILICAL HERNIA REPAIR, [facility] [place]. 04/2012 BUNION REPAIR- RIGHT FOOT W / SCREW, [facility]. 09/2013 RIGHT FOOT HAMMER TOE REPAIR, [place]. 04/2014 Dorsal Column Stimulator Trial, [facility] [place]. 05/2014 Permanent Dorsal Column Stimulator - Family History Known Family History: Positive: Hypertension - Social History Alcohol Use: None Substance Use Type: None Substance Use Comment - Amount & Last Used: fentanyl patch and oxycodone Smoking Status (MU): Never Smoked Tobacco Have You Smoked in the Last Year: No - Immunization History Most Recent Influenza Vaccination: 04/2017 Review of Systems Constitutional: Negative Skin: Negative Eyes: Negative ENT: Negative Respiratory: Negative Cardiovascular: Negative Gastrointestinal: Negative Genitourinary: Negative Motor: Negative Neurovascular: Negative Musculoskeletal: Arthralgia Neurological: Negative Psychological: Negative Is Patient Immunocompromised?: No All Other Systems Reviewed And Are Negative: Yes Physical Exam Triage Information Reviewed: Yes Appearance: Well-Appearing, No Pain Distress, Well-Nourished Vital Signs: Initial Vital Signs Temp 98.4 F 02/23/18 10:35 Pulse 59 02/23/18 10:35 Resp 18 02/23/18 10:35 BP 129/66 02/23/18 10:35 Pulse Ox 96 02/23/18 10:35 Vital Signs Reviewed: Yes Eyes: Positive: Conjunctiva Clear ENT: Positive: Hearing grossly normal, Pharynx normal, Uvula midline, Other - punched out lesion right lateral tongue. Negative: Tonsillar swelling, Tonsillar exudate Neck: Positive: Supple, Nontender Respiratory: Positive: Lungs clear, Normal breath sounds, No respiratory distress, No accessory muscle use Cardiovascular: Positive: RRR, No Murmur Musculoskeletal: Positive: ROM Intact, Edema @ Lower Extremity Course/Dx - Differential Dx/Diagnosis Provider Diagnoses: cellulitis left leg. tongue lesion- biospy suggested Discharge - Sign-Out/Discharge Documenting (check all that apply): Discharge/Admit/Transfer - Discharge Plan Condition: Stable Disposition: HOME Prescriptions: Cephalexin SUSP* [Keflex SUSP 250 MG/5 ML*] 500 mg PO QID #400 oral.susp Patient Education Materials: Cellulitis (ED) Referrals: Kriss Meléndez MD [Primary Care Provider] - 2 Days Ruiz Sanchez MD [Doctor of Dental Medicine] - As Soon As Possible (I suggest you have your tongue lesion biopsied) - Billing Disposition and Condition Condition: STABLE Disposition: Home Images Feet (Multiple View): 1 - red /swollen
== END 2018-02-23 11:39 | disposition home or self-care (01) ==
LOC: UCEAST 09:55
DX: L03.116 Cellulitis of left lower limb (principal); K13.70 Unspecified lesions of oral mucosa; Z98.84 Bariatric surgery status; Z88.6 Allergy status to analgesic agent; Z88.1 Allergy status to other antibiotic agents; Z88.3 Allergy status to other anti-infective agents; Z88.0 Allergy status to penicillin; Z88.2 Allergy status to sulfonamides; Z88.8 Allergy status to other drugs, medicaments and biological substances; Z91.048 Other nonmedicinal substance allergy status; Z82.49 Family history of ischemic heart disease and other diseases of the circulatory system
CPT/HCPCS: 99212; G0463

== ENCOUNTER 2018-02-28 17:37 | Emergency (ER) | payer MEDICARE, OTHER ==
--- OUTSIDE RECORDS SUMMARY | 2018-02-28 18:11 | XMS REPORT ---
:1955 External Reference #:[id number] Author Organization [facility] [employer] Address [address] [place] [address] Phone [phone] Care Team Providers Name Role Phone Kriss Meléndez MD Care Team Information Ticket Taker Unavailable Kriss Meléndez MD Primary Care Physician Unavailable Payers Type Date Identification Numbers Payment Provider Subscriber Commercial Expires: Policy Number: BS [facility] Edwin Lomeli 2016 [id number] PayID: [id number] [address] [address] [place] [address] Medicare Primary Policy Number: [id number] Medicare Valeria Lomeli PayID: [id number] [address] [place] [address] Medigap Part B Policy Number: [id number] Private Ins/Quentin#[id number] Valeria Lomeli PayID: [id number] [address] [place] [address] Problems Description No Information Family History Date Family Member(s) Problem(s) Comments Father due to COPD () Father due to Heart Disease () Mother due to Cancer () Mother due to Diabetes () Mother due to Stroke () First Brother Diabetes Social History Type Date Description Comments Occupation Retired Occupation Disabled Cigarette Use Never Smoked Cigarettes ETOH Use Rare Use Of Alcohol Recreational Drug Use Never Used Drugs Allergies, Adverse Reactions, Alerts Date Description Reaction Status Severity Comments 11/21/2014 Sulfa (Sulfonamide Antibiotics) active 11/21/2014 Povidone-Iodine active 11/07/2015 Betadine active 11/07/2015 NSAIDs active 11/17/2017 Bandaids active 11/17/2017 Adhesive active 11/17/2017 Lyrica active 11/17/2017 Ciprofloxacin active 11/17/2017 Dust active 11/17/2017 Pollen active 12/26/2008 Iodine RASH inactive 11/22/2014 NKDA inactive Medications Medication Date Status Form Strength Qnty SIG Indications Ordering Provider Desloratadine 11/17/ Active Tablets 5mg 90tab 1 by Jeremiah 2018 Dispers s mouth Doyle, every day M.D. Fluticasone 11/17/ Active Suspension 50mcg/Act 29.7m 2 sprays Baldomero Daniels 2018 l each Doyle, nostril M.D. every day Synthroid / Active Tablets 100mcg 1 by Unknown 0000 mouth every day Lexapro / Active Tablets 20mg Unknown 0000 Multivitamins / Active Capsules 1 by Unknown 0000 mouth twice daily Vitamin D3 / Active Tablets 500Iu 1 by Unknown 0000 mouth daily Citracal Calcium / Active Tablets ER 1 by Unknown 0000 24HR mouth daily Vitamin B12 / Active Tablets 500mcg 1 Unknown 0000 subling. daily Fentanyl / Active Patches 62.5mcg/H changes Unknown 0000 72HR R every 2 days Oxycodone HCL / Active Tablets 15mg 1 by Unknown 0000 mouth every 4-6 hours Furosemide / Active Tablets 40mg 3 by Unknown 0000 mouth every day Methocarbamol / Active Tablets 750mg 1 tab by Unknown 0000 mouth every 6 hour may use 2 tabs every night for neck spasm Iron Supplement / Active Tablets 325mg 1 by Unknown 0000 mouth twice a day Pramipexole / Active Tablets 1.5mg take one Unknown Dihydrochloride 0000 tablet by mouth every day two hours before bedtime for restless leg syndrome Symbicort / Active Aerosol 80-4.5mcg 2 puff Unknown 0000 /Act twice a day Albuterol Sulfate / Active Nebulizer (2.5mg/3M every 2-4 Unknown 0000 L) 0.083% hours as needed Omeprazole 11/21/ Hx Capsules DR 20mg 14cap Once Unknown 2014 - s Daily 2015 See Med List / Hx Unknown 0000 - 2014 Calcium Citrate + / Hx Tablets 315-250mg Once Unknown D 0000 - -Unit Daily For 2015 [facility] Vitamin D / Hx Capsules 5000Unit Once Unknown 5000 High-Potency 0000 - Daily 2015 Escitalopram / Hx Tablets 20mg Once Unknown Oxalate 0000 - Daily 2015 Duragesic 00/00/ Hx Patches 25mcg/HR Every Unknown 0000 - 72HR Three Days 2016 Gabapentin 00/ Hx Capsules 300mg AT Unknown 0000 - Bedtime 11/05/ prn Back 2016 Pain Oxycodone/Acetami 0000/ Hx Tablets 10-325mg Every 6 Unknown nophen 0000 - Hours prn 11/05/ Pain 2016 Pramipexole 00/ Hx Tablets ER 1.5mg Once Unknown Dihydrochloride 0000 - 24HR Daily ER 2015 Ropinirole HCL / Hx Tablets 2mg Every Unknown 0000 - Evening 11/05/ prn RLS 2016 Requip / Hx Tablets 2mg as needed Unknown 0000 - 2017 Vital Signs Date Vital Result Comment 02/03/2018 Weight 278.00 lb Height 67 inches 5'7" BMI (Body Mass Index) 43.5 kg/m2 BP Systolic 135 mmHg BP Diastolic 86 mmHg Heart Rate 57 /min O2 % BldC Oximetry 95 % Body Temperature 98.4 F Pain Level 8 mouth 11/17/2017 Weight 270.50 lb Height 67 inches 5'7" BMI (Body Mass Index) 42.4 kg/m2 BP Systolic 118 mmHg BP Diastolic 61 mmHg Heart Rate 70 /min O2 % BldC Oximetry 91 % room air Body Temperature 98.3 F Screven Score 19 Neck Circumference in inches 16 Pain Level 0 06/19/2017 Weight 277.00 lb Height 67 inches 5'7" BMI (Body Mass Index) 43.4 kg/m2 BP Systolic 168 mmHg BP Diastolic 91 mmHg Heart Rate 61 /min O2 % BldC Oximetry 94 % Body Temperature 98.6 F Screven Score 15 Pain Level 0 11/07/2015 Weight 257.25 lb Height 67 inches 5'7" BMI (Body Mass Index) 40.3 kg/m2 BP Systolic 124 mmHg BP Diastolic 80 mmHg Heart Rate 62 /min O2 % BldC Oximetry 95 % Body Temperature 99.1 F Screven Score 16 ? due to pain med 06/08/2015 Weight 259.00 lb Height 67 inches 5'7" BMI (Body Mass Index) 40.6 kg/m2 BP Systolic 140 mmHg BP Diastolic 92 mmHg Heart Rate 53 /min O2 % BldC Oximetry 94 % Body Temperature 98.3 F Screven Score 17 Neck Circumference in inches 15 12/26/2008 Weight 292.00 lb Height 68 inches 5'8" BMI (Body Mass Index) 44.4 kg/m2 BP Systolic 140 mmHg BP Diastolic 82 mmHg Heart Rate 88 /min Neck 16.25" O2 % BldC Oximetry 98 % Results Description No Information Procedures Date CPT Code Description Status 06/22/2015 85399 Sleep Stage 4 Or More Cpap Titra Completed 12/26/2008 00028 Fiberoptic Laryngoscopy,Diag. Completed Encounters Type Date Location Provider CPT E/M Dx Office Visit 11/17/2017 4:15p [place] [address] G47.33 Office Visit 06/19/2017 2:30p [place] [address] G47.33 Office Visit 11/07/2015 3:00p Main Office Doyle Daniels M.D. 93878 G47.33 E66.9 Office Visit 07/07/2015 2:30p Main Office Doyle Daniels M.D. 71983 G47.33 E66.9 K21.9 Office Visit 06/08/2015 3:00p Main Office Doyle Daniels M.D. 40050 G47.9 J34.2 G25.81 E66.9 K21.9 Office Visit 12/26/2008 8:30a Main Office Doyle Daniels M.D. 57040 780.50 470 472.0 Plan of Care 12/26/2008 - Doyle Daniels M.D.780.50 Sleep Disturbance [id number] Deviated Nasal Nsagjl661.0 Rhinitis ChronicNew Orders:PSG - Sleep Study
[2018-02-28 18:21] VITALS: BP 117/56
--- NOTE | 2018-02-28 18:30 | UC ---
Skin Complaint HPI - HPI Summary HPI Summary: 62 y/o female presents to the urgent care c/o left lower leg cellulitis not getting better even though she has been taking Keflex for the past 8 days. Pt reports she was seen here at the clinic and Rx the Keflex PO. However she has been taking it w/o any improvement. She saw her PCP this past Friday and advised to continue taking the Keflex PO and her Lasix PO to decrease leg swelling. Pt is allergic to multiple antibiotics. Pt states Hx of B/L leg swelling and asthma. Pt also states she has developed mild oral thrush, but her PCP change her Symbicort inhaler for Stiolto inhlaer to see if it resolves the thrust. She has been taking the new inhaler only for the past 2 days. Pt states mild pain at touch 2/10. She denies fever, calf pain, SOB, chest pain, palpitation, abdominal pain, N/V/D. - History of Current Complaint Chief Complaint: UCSkin Time Seen by Provider: 02/28/18 18:29 Stated Complaint: RE-CK CELLULITIS Hx Obtained From: Patient Hx Last Menstrual Period: n/a ?: No - menopausal Onset/Duration: Gradual Onset, Lasting Days - 8 days, Still Present, Worse Since - 2 days Skin Exposure Onset/Duration: Days Ago - 8 days Timing: Constant Onset Severity: Mild Current Severity: Mild Pain Intensity: 2 Pain Scale Used: 0-10 Numeric Location: Discrete - left lower leg Character: Swelling, Redness Aggravating Factor(s): Touch Alleviating Factor(s): Nothing Associated Signs & Symptoms: Positive: Rash - redness rash on distal left lower leg, Drainage - some blisters, Tenderness - mild. Negative: Fever, Chills Related History: Other: - varicose veins - Allergy/Home Medications Allergies/Adverse Reactions: Allergies Allergy/AdvReac Type Severity Reaction Status Date / Time Adhesive Tape Allergy Intermediate Blisters Verified 02/28/18 18:23 [Tegaderm Dressing] amoxicillin [From Augmentin] Allergy Rash And Verified 02/28/18 18:23 Itching clavulanic acid Allergy Rash And Verified 02/28/18 18:23 [From Augmentin] Itching doxycycline Allergy Itching Verified 02/28/18 18:23 NSAIDS (Non-Steroidal Allergy ulcers, Hx Verified 02/28/18 18:23 Anti-Inflamma gastric bypass povidone-iodine Allergy Rash Verified 02/28/18 18:23 [From Betadine] pregabalin [From Lyrica] Allergy Anxiety Verified 02/28/18 18:23 soap [From Betadine] Allergy Rash Verified 02/28/18 18:23 Sulfa (Sulfonamide Allergy Rash Verified 02/28/18 18:23 Antibiotics) SURGICAL PREP Allergy Severe ITCHY RASH Uncoded 02/28/18 18:23 BANDAID ADHESIVE Allergy Intermediate ITCHY Uncoded 02/28/18 18:23 REDNESS ENVIRONMENTAL Allergy Intermediate ITCHY Uncoded 02/28/18 18:23 WATERY EYES, STUFFY Home Medications: Home Medications Tiotropium Br/Olodaterol HCl [Stiolto Respimat Inhal [place]] 2 puff IH BEDTIME [History Confirmed 02/28/18] Review of Systems Constitutional: Negative Skin: Rash - red rash left lower leg w/ some blisters Eyes: Negative ENT: Negative Respiratory: Negative Cardiovascular: Negative Gastrointestinal: Negative Genitourinary: Negative Motor: Negative Neurovascular: Negative Musculoskeletal: Edema - left lower leg Neurological: Negative Psychological: Negative Is Patient Immunocompromised?: No All Other Systems Reviewed And Are Negative: Yes PMH/Surg Hx/FS Hx/Imm Hx Previously Healthy: Yes Endocrine History: Hypothyroidism Other Endocrine History: anemia Respiratory History: Asthma - Surgical History Surgical History: Yes Surgery Procedure, Year, and Place: R foot surgery Aug 2017. 12/2015 L2-L3 FUSION. 08/2014 DORSAL COLUMN STIMULATOR PUT IN STIMULATOR AND BATTERY WAS REMOVED 07/27/2015 [place] [facility] [place] BY [place] DEL CID. 2014 SURGERY RIGHT FOOT [facility]. 04/2013 LAMINECTOMY, [facility] [place]. 1989 RIGHT HAND - GANLION CYST, [facility]. 03/1985 BILATERAL TUBAL LIGATION, [facility] 09/2005 LAP BAND - [facility] [place]. 2008 CONVERTED TO GASTRIC BYPASS, [facility]. 01/2010 LAPAROSCOPIC CHOLECYSTECTOMY, [facility]. 05/2011 UMBILICAL HERNIA REPAIR, [facility]. 04/2012 BUNION REPAIR- RIGHT FOOT W / SCREW, [place]. 09/2013 RIGHT FOOT HAMMER TOE REPAIR, [place]. 04/2014 Dorsal Column Stimulator Trial, [facility]. 05/2014 Permanent Dorsal Column Stimulator - Family History Known Family History: Positive: Hypertension - Social History Occupation: Retired Lives: With Family Alcohol Use: None Substance Use Type: None Substance Use Comment - Amount & Last Used: fentanyl patch and oxycodone Smoking Status (MU): Never Smoked Tobacco Have You Smoked in the Last Year: No - Immunization History Most Recent Influenza Vaccination: 04/2017 Physical Exam - Summary Physical Exam Summary: Vital Signs Reviewed: Yes Appearance: Well-Appearing, No Pain Distress, Well-Nourished, Obese female Eyes: Positive: Conjunctiva Clear - PERRLA, LD, fundi grossly WNL ENT: Positive: Normal ENT inspection, Hearing grossly normal, Pharynx normal, TMs normal, Uvula midline Neck: Positive: Supple, Nontender, No Lymphadenopathy Respiratory: Positive: Chest non-tender, Lungs clear, Normal breath sounds, No respiratory distress Cardiovascular: Positive: RRR, No Murmur, Pulses Normal, Brisk Capillary Refill Abdomen Description: Positive: Nontender, No Organomegaly, Soft. Negative: CVA Tenderness (R), CVA Tenderness (L) Bowel Sounds: Positive: Present Extremities: L extremity with/without deformity or asymmetry when compared to the R. moderate soft tissue swelling w/ edema. lateral aspect of the distal left lower leg w/ erythematous patch w/ indistinct borders about 6.0cm x4.0cm in size. Alos some scattered blisters and petechia. B/l lower leg discoloration. Diameter of calves is about the same. Soft tissues of posterior lower legs are soft, supple, nontender, Some palpable varicose cords w/ evidence of thrombophlebitis. No evidence of gangrene or compartment syndrome. Medial thigh is without soft tissue swelling or tender to palpation. Negative Homans sign. 2= pitting edema w/ venous stasis more on the left medial malleolus. No proximal lymphangitis or lymphadenopathy. Neurological Exam: Normal Psychological Exam: Normal Skin Exam: Normal Triage Information Reviewed: Yes Vital Signs: Initial Vital Signs Temp 98.5 F 02/28/18 18:14 Pulse 66 02/28/18 18:14 Resp 16 02/28/18 18:14 BP 117/56 02/28/18 18:14 Pulse Ox 96 02/28/18 18:14 Course/Dx - Course Course Of Treatment: 62 y/o female presents to the urgent care c/o left lower leg cellulitis not getting better even though she has been taking Keflex for the past 8 days. Pt reports she was seen here at the clinic and Rx the Keflex PO. However she has been taking it w/o any improvement. She saw her PCP this past Friday and advised to continue taking the Keflex PO and her Lasix PO to decrease leg swelling. Pt is allergic to multiple antibiotics. Pt states Hx of B /L leg swelling and asthma. Pt also states she has developed mild oral thrush, but her PCP change her Symbicort inhaler for Stiolto inhlaer to see if it resolves the thrust. She has been taking the new inhaler only for the past 2 days. Pt states mild pain at touch 2/10. She denies fever, calf pain, SOB, chest pain, palpitation, abdominal pain, N/V/D.Hx obtained. Pt w/ Left lower leg cellulitis and venous stasis on examination. Pt allergic to multiple antibiotics. Pt's symptoms discussed w/ Dr Brown and he evaluated Pt and recommended to stop Keflex PO and Pt needs a latoya fierro to alleviate venous stasis and a Vascular surgeon referral. Pt given referral for Vascular surgeon Dasilva as soon as possible. Pt advised to keep her leg elevated and continue taking Laxis PO to decrease swelling. Pt understood and agreed w/ plan of care. Pt left the clinic ambulating, and hemodynamically stable. - Differential Diagnoses - Skin Complaint Differential Diagnoses: Cellulitis, Lymphadenitis, Tinea, Urticaria, Other - venous insuffiency, venous stasis - Diagnoses Provider Diagnoses: 1- Left lower leg venous stasis. 2- Venous insuffiency - Physician Notification/Consults Discussed Patient Care With: Vikash Brown - Dr Brown agreed w/ Pt's plan of care Discharge - Sign-Out/Discharge Documenting (check all that apply): Patient Departure - D/C home - Discharge Plan Condition: Stable Disposition: HOME Patient Education Materials: Stasis Dermatitis (ED), Venous Insufficiency (DC) Referrals: Nikko Vidales MD [Medical Doctor] - 1 Day Kriss Meléndez MD [Primary Care Provider] - 2 Days Additional Instructions: 1- Pleased f/u w/ the Vascular surgeon for DR Vidales for further evaluation and treatment since I think you need an Latoya boot for your Venous stasis. 2- Please stop taking Keflex PO. Keep your leg elevated at all times and keep taking Lasix PO as directed by your PCP. 3- If you develops severe calf pin , fever, or redness doubles in size please go to the ER immediately for further treatment 4- Wound culture was sent to lab to r/o any abnormality. You will be notified of the result. - Billing Disposition and Condition Condition: STABLE Disposition: Home
== END 2018-02-28 19:18 | disposition home or self-care (01) ==
LOC: UCCORT 17:37
DX: I87.2 Venous insufficiency (chronic) (peripheral) (principal); I87.8 Other specified disorders of veins; J45.909 Unspecified asthma, uncomplicated; Z91.09 Other allergy status, other than to drugs and biological substances; Z88.0 Allergy status to penicillin; Z88.5 Allergy status to narcotic agent; Z88.2 Allergy status to sulfonamides; Z88.8 Allergy status to other drugs, medicaments and biological substances; Z91.048 Other nonmedicinal substance allergy status
CPT/HCPCS: 87070; 87205; 99212; G0463

== ENCOUNTER 2018-05-12 14:33 | Emergency (ER) | payer MEDICARE, OTHER ==
[2018-05-12 16:03] VITALS: BP 133/75
--- NOTE | 2018-05-12 17:05 | UC ---
Respiratory Complaint HPI - HPI Summary HPI Summary: 62-year-old female presents with onset of productive cough since last night. Patient states that she has been having frequent heartburn at night and was seen by Dr. Prieto, gastroenterology, on 05/08/2018 and started on dexlansoprazole 40 mg daily. She states last night she woke up during the night with another episode of heartburn that lasted approximately one hour. She also began with a productive cough for a dark colored sputum and she noted a few streaks of blood as well. She denies fever, chills, URI symptoms, chest pain, palpatations, shortness of breath, wheezing, lower leg pain or swelling, abdominal pain, nausea, or vomiting. She does have a history of asthma that is well controlled. She did use her rescue inhaler once today. - History of Current Complaint Chief Complaint: UCRespiratory Stated Complaint: COUGH Time Seen by Provider: 05/12/18 16:37 Hx Obtained From: Patient Hx Last Menstrual Period: n/a ?: No Severity Initially: Mild Severity Currently: Mild Pain Intensity: 0 Character: Cough: Productive Aggravating Factors: Nothing Alleviating Factors: Nothing Associated Signs And Symptoms: Positive: Hemoptysis. Negative: Dyspnea, Fever, Chills, Pleuritic Chest Pain, Wheezing, Dizziness, Calf Pain, Calf Swelling, URI , Nasal Congestion, Hoarseness, Sinus Discomfort - Allergies/Home Medications Allergies/Adverse Reactions: Allergies Allergy/AdvReac Type Severity Reaction Status Date / Time Adhesive Tape Allergy Intermediate Blisters Verified 05/12/18 10:50 [Tegaderm Dressing] amoxicillin [From Augmentin] Allergy Rash And Verified 05/12/18 10:50 Itching clavulanic acid Allergy Rash And Verified 05/12/18 10:50 [From Augmentin] Itching doxycycline Allergy Itching Verified 05/12/18 10:50 NSAIDS (Non-Steroidal Allergy ulcers, Hx Verified 05/12/18 10:50 Anti-Inflamma gastric bypass povidone-iodine Allergy Rash Verified 05/12/18 10:50 [From Betadine] pregabalin [From Lyrica] Allergy Anxiety Verified 05/12/18 10:50 soap [From Betadine] Allergy Rash Verified 05/12/18 10:50 Sulfa (Sulfonamide Allergy Rash Verified 05/12/18 10:50 Antibiotics) SURGICAL PREP Allergy Severe ITCHY RASH Uncoded 02/28/18 18:23 BANDAID ADHESIVE Allergy Intermediate ITCHY Uncoded 02/28/18 18:23 REDNESS ENVIRONMENTAL Allergy Intermediate ITCHY Uncoded 02/28/18 18:23 WATERY EYES, STUFFY Home Medications: Home Medications Dexlansoprazole [Dexilant] 60 mg PO DAILY 05/12/18 [History Confirmed 05/12/18] Spiriva Inhaler DEVICE* [Tiotropium Inhaler DEVICE*] 1 each INH DAILY 05/12/18 [ History Confirmed 05/12/18] PMH/Surg Hx/FS Hx/Imm Hx Endocrine History: Thyroid Disease Cardiovascular History: Other Other Cardiovascular History: venous insufficiency Respiratory History: Asthma GI/ History: Gastroesophageal Reflux Psychological History: Depression - Surgical History Surgical History: Yes Surgery Procedure, Year, and Place: R foot surgery Aug 2017. 12/2015 L2-L3 FUSION. 08/2014 DORSAL COLUMN STIMULATOR PUT IN STIMULATOR AND BATTERY WAS REMOVED 07/27/2015 PER [facility] [place] BY DR DEL CID. 2014 SURGERY RIGHT FOOT [facility]. 04/2013 LAMINECTOMY, [facility] [place]. 1989 RIGHT HAND - GANLION CYST, [facility]. 03/1985 BILATERAL TUBAL LIGATION, [facility] [place] 09/2005 LAP BAND - [facility]. 2008 CONVERTED TO GASTRIC BYPASS, [facility]. 01/2010 LAPAROSCOPIC CHOLECYSTECTOMY, [facility]. 05/2011 UMBILICAL HERNIA REPAIR, [facility] 04/2012 BUNION REPAIR- RIGHT FOOT W / SCREW, [facility]. 09/2013 RIGHT FOOT HAMMER TOE REPAIR, [place]. 04/2014 Dorsal Column Stimulator Trial, [facility] [place]. 05/2014 Permanent Dorsal Column Stimulator - Family History Known Family History: Positive: Hypertension - Social History Occupation: Works From/At Home Lives: With Family Alcohol Use: None Substance Use Type: None Substance Use Comment - Amount & Last Used: fentanyl patch and oxycodone Smoking Status (MU): Never Smoked Tobacco Have You Smoked in the Last Year: No - Immunization History Most Recent Influenza Vaccination: 04/2017 Review of Systems Constitutional: Negative Skin: Negative Respiratory: Negative Cardiovascular: Negative Gastrointestinal: Other - See HPI Is Patient Immunocompromised?: No All Other Systems Reviewed And Are Negative: Yes Physical Exam Triage Information Reviewed: Yes Appearance: Well-Appearing, No Pain Distress, Obese Vital Signs: Initial Vital Signs Temp 98.0 F 05/12/18 15:52 Pulse 59 05/12/18 15:52 Resp 17 05/12/18 15:52 BP 133/75 05/12/18 15:52 Pulse Ox 94 05/12/18 15:52 Vital Signs Reviewed: Yes ENT: Positive: Pharynx normal, TMs normal, Uvula midline. Negative: Nasal congestion, Nasal drainage, Sinus tenderness Neck: Positive: Supple, Nontender, No Lymphadenopathy Respiratory: Positive: Lungs clear, Normal breath sounds, No respiratory distress Cardiovascular: Positive: RRR, No Murmur, Pulses Normal, Brisk Capillary Refill , Other: - Mild bilateral non-pitting edema lower extremities. Bilateral calves supple and nontender. Abdomen Description: Positive: Nontender, No Organomegaly, Soft. Negative: Distended, Guarding Neurological: Positive: Alert Skin Exam: Normal UC Diagnostic Evaluation - Laboratory O2 Sat by Pulse Oximetry: 94 Respiratory Course/Dx - Course Course Of Treatment: 62 year old female presents with complaint of nightly heartburn and devlopment of a productive cough. She was recently seen by gastroenterology and started on PPI for GERD. Her exam was essentially unremarkable. Lung sounds clear. Suspect that cough is related to her GERD however she has only been on her PPI for a few days. Recommend continued use of PPI and follow up with PCP within 7 days for re-evalation. Reviewed lifestyle changes to assist with prevention of GERD symptoms and warning symptoms requiring immediate medical attention in the ED. Verbalizes understanding and agrees with POC. - Differential Dx/Diagnosis Differential Diagnosis/HQI/PQRI: Asthma, Bronchitis, Lower Resp Infection, Other - GERD Provider Diagnoses: GERD Discharge - Sign-Out/Discharge Documenting (check all that apply): Patient Departure All imaging exams completed and their final reports reviewed: No Studies - Discharge Plan Condition: Stable Disposition: HOME Patient Education Materials: Gastroesophageal Reflux Disease (ED) Referrals: Kriss Meléndez MD [Primary Care Provider] - 7 Days (If no improvement) Additional Instructions: I suspect that your symptoms are related to your gastroesophageal reflux disease. Be sure to continue your dexlansoprazole as directed. Avoid eating for at least 3 hours before going to bed. Be sure to sleep with your head elevated at night. Avoid spicy or fatty foods. Caffeine, alcohol, and peppermint can also cause worsening of symptoms therefore should be restricted or avoided. Follow-up with your primary care provider in 7 days if symptoms do not improve. Seek immediate medical attention in the emergency room if you develop fever greater than 100.5 F, have chest pain, shortness of breath, persistent vomiting , or any worsening of symptoms. - Billing Disposition and Condition Condition: STABLE Disposition: Home
--- NOTE | 2018-05-13 13:09 | UC ---
- Progress Note Progress Note: There were no imaging studies ordered on May 12, 2018 Discharge - Sign-Out/Discharge Documenting (check all that apply): Patient Departure All imaging exams completed and their final reports reviewed: No Studies - Discharge Plan Condition: Stable Disposition: HOME Patient Education Materials: Gastroesophageal Reflux Disease (ED) Referrals: Kriss Meléndez MD [Primary Care Provider] - 7 Days (If no improvement) Additional Instructions: I suspect that your symptoms are related to your gastroesophageal reflux disease. Be sure to continue your dexlansoprazole as directed. Avoid eating for at least 3 hours before going to bed. Be sure to sleep with your head elevated at night. Avoid spicy or fatty foods. Caffeine, alcohol, and peppermint can also cause worsening of symptoms therefore should be restricted or avoided. Follow-up with your primary care provider in 7 days if symptoms do not improve. Seek immediate medical attention in the emergency room if you develop fever greater than 100.5 F, have chest pain, shortness of breath, persistent vomiting , or any worsening of symptoms. - Billing Disposition and Condition Condition: STABLE Disposition: Home
== END 2018-05-12 17:12 | disposition home or self-care (01) ==
LOC: UCCORT 14:33
DX: K21.9 Gastro-esophageal reflux disease without esophagitis (principal); J45.909 Unspecified asthma, uncomplicated; E66.9 Obesity, unspecified; Z98.84 Bariatric surgery status; Z91.048 Other nonmedicinal substance allergy status; Z88.1 Allergy status to other antibiotic agents; Z88.2 Allergy status to sulfonamides; Z88.8 Allergy status to other drugs, medicaments and biological substances; M54.16 Radiculopathy, lumbar region; M96.1 Postlaminectomy syndrome, not elsewhere classified; Z79.891 Long term (current) use of opiate analgesic; Z68.41 Body mass index [BMI] 40.0-44.9, adult
CPT/HCPCS: 99211; G0463

== ENCOUNTER 2018-08-17 12:08 | Emergency (ER) | payer MEDICARE, OTHER ==
[2018-08-17 13:57] VITALS: BP 119/70
--- NOTE | 2018-08-17 14:11 | UC ---
Respiratory Complaint HPI - HPI Summary HPI Summary: Has had an intermittent cough over the past few months. Does have asthma and is using all her inhalers. Has been using both her asthma inhalers w/ some improvement. Had a CXR in [place] 2017 that showed diaphragm asymmetry but otherwise no other chronic issues. After three types of antibx rx'd she developed a yeast infection. Tried monistat but it did not work. - History of Current Complaint Chief Complaint: UCGU Stated Complaint: PERSONAL (FEMALE) Time Seen by Provider: 08/17/18 13:43 Hx Obtained From: Patient Hx Last Menstrual Period: n/a Pain Intensity: 3 Pain Scale Used: 0-10 Numeric Alleviating Factors: Bronchodilator, OTC Meds Associated Signs And Symptoms: Positive: Wheezing. Negative: Dyspnea, Fever, Chills, Pleuritic Chest Pain - Allergies/Home Medications Allergies/Adverse Reactions: Allergies Allergy/AdvReac Type Severity Reaction Status Date / Time Adhesive Tape Allergy Intermediate Blisters Verified 08/17/18 13:57 [Tegaderm Dressing] amoxicillin [From Augmentin] Allergy Rash And Verified 08/17/18 13:57 Itching cephalexin Allergy Rash Verified 08/17/18 14:07 ciprofloxacin Allergy Rash Verified 08/17/18 14:07 clavulanic acid Allergy Rash And Verified 08/17/18 13:57 [From Augmentin] Itching doxycycline Allergy Itching Verified 08/17/18 13:57 NSAIDS (Non-Steroidal Allergy ulcers, Hx Verified 08/17/18 13:57 Anti-Inflamma gastric bypass povidone-iodine Allergy Rash Verified 08/17/18 13:57 [From Betadine] pregabalin [From Lyrica] Allergy Anxiety Verified 08/17/18 13:57 soap [From Betadine] Allergy Rash Verified 08/17/18 13:57 Sulfa (Sulfonamide Allergy Rash Verified 08/17/18 13:57 Antibiotics) SURGICAL PREP Allergy Severe ITCHY RASH Uncoded 08/17/18 13:57 BANDAID ADHESIVE Allergy Intermediate ITCHY Uncoded 08/17/18 13:57 REDNESS ENVIRONMENTAL Allergy Intermediate ITCHY Uncoded 08/17/18 13:57 WATERY EYES, STUFFY PMH/Surg Hx/FS Hx/Imm Hx Previously Healthy: Yes Endocrine History: Thyroid Disease Cardiovascular History: Cardiac Disease, Hypertension Respiratory History: Asthma - Surgical History Surgical History: Yes Surgery Procedure, Year, and Place: R foot surgery Aug 2017. 12/2015 L2-L3 FUSION. 08/2014 DORSAL COLUMN STIMULATOR PUT IN STIMULATOR AND BATTERY WAS REMOVED 07/27/2015 PER [facility] [place] REPORT BY DR DEL CID. 2014 SURGERY RIGHT FOOT RUDY REGIONAL. 04/2013 LAMINECTOMY, [facility] [place]. 1989 RIGHT HAND - GANLION CYST, [facility] [place]. 03/1985 BILATERAL TUBAL LIGATION, [facility] [place] 09/2005 LAP BAND - [facility] [place]. 2008 CONVERTED TO GASTRIC BYPASS, [facility] [place]. 01/2010 LAPAROSCOPIC CHOLECYSTECTOMY, [facility] [place]. 05/2011 UMBILICAL HERNIA REPAIR, [facility] [place]. 04/2012 BUNION REPAIR- RIGHT FOOT W / SCREW, [place]. 09/2013 RIGHT FOOT HAMMER TOE REPAIR, [place]. 04/2014 Dorsal Column Stimulator Trial, [facility] [place]. 05/2014 Permanent Dorsal Column Stimulator - Family History Known Family History: Positive: Hypertension - Social History Alcohol Use: None Substance Use Type: None Substance Use Comment - Amount & Last Used: fentanyl patch and oxycodone Smoking Status (MU): Never Smoked Tobacco Have You Smoked in the Last Year: No - Immunization History Most Recent Influenza Vaccination: 04/2017 Review of Systems All Other Systems Reviewed And Are Negative: Yes Constitutional: Positive: Negative Skin: Positive: Rash - vaginal Respiratory: Positive: Cough. Negative: Shortness Of Breath Cardiovascular: Positive: Negative Physical Exam Triage Information Reviewed: Yes Appearance: Well-Appearing Vital Signs: Initial Vital Signs Temp 97.6 F 08/17/18 13:50 Pulse 58 08/17/18 13:50 Resp 18 08/17/18 13:50 BP 119/70 08/17/18 13:50 Pulse Ox 96 08/17/18 13:50 Vital Signs Reviewed: Yes Respiratory Exam: Normal Respiratory: Positive: No respiratory distress, Wheezing - occasional throughout. Negative: Crackles, Rhonchi, Stridor Cardiovascular Exam: Normal Pelvic Exam: Positive: Other - outer/inner labia has yeast discharge w/ some raw inflammation at upper introitus Neurological: Positive: Alert UC Diagnostic Evaluation - Laboratory O2 Sat by Pulse Oximetry: 96 Respiratory Course/Dx - Course Course Of Treatment: Ongoing intermittent cough over the past few mo. even after being tx w/ antibiotics. She continues to use her inhalers but the thought is a short course of steroids may help the continued coughing. She has f/u planed w/ pcp to discuss her asthma control either way. Advised to go to ED should she develop acute sob. Also has fungal vagintis from recent antibx that were rx'd multiple times. Will tx. - Differential Dx/Diagnosis Differential Diagnosis/HQI/PQRI: Asthma, Bronchitis, Lower Resp Infection Provider Diagnosis: Vaginitis Discharge - Sign-Out/Discharge Documenting (check all that apply): Patient Departure All imaging exams completed and their final reports reviewed: No Studies - Discharge Plan Condition: Good Disposition: HOME Prescriptions: Fluconazole 150 MG TAB* [Diflucan 150 MG TAB*] 150 mg PO ONCE 1 Days #1 tablet predniSONE [Prednisone 20 MG TAB] 20 mg PO DAILY 5 Days #5 tablet Patient Education Materials: Vaginitis (ED), Bronchospasm (ED) Referrals: Kriss Meléndez MD [Primary Care Provider] - Additional Instructions: Just a reminder to follow up with your pcp re: your breathing issues. Continue using all your inhalers. - Billing Disposition and Condition Condition: GOOD Disposition: Home
== END 2018-08-17 14:22 | disposition home or self-care (01) ==
LOC: UCEAST 12:08
DX: N76.0 Acute vaginitis (principal); I10 Essential (primary) hypertension; J45.909 Unspecified asthma, uncomplicated; Z88.0 Allergy status to penicillin; Z88.1 Allergy status to other antibiotic agents; Z91.048 Other nonmedicinal substance allergy status; Z88.6 Allergy status to analgesic agent; Z88.8 Allergy status to other drugs, medicaments and biological substances; Z88.2 Allergy status to sulfonamides; Z91.09 Other allergy status, other than to drugs and biological substances
CPT/HCPCS: 99212; G0463

== ENCOUNTER 2019-05-03 10:30 | Emergency (ER) | payer MEDICARE, OTHER ==
--- OUTSIDE RECORDS SUMMARY | 2019-05-03 11:37 | XMS REPORT | Continuity of Care Document ---
:1955 External Reference #:[id number] Author Name VIKAS Arce (transmitted by agent of provider Osiris Kearns) Address [address] , [place] [address] Care Team Providers Name Role Phone Kriss Meléndez MD - Internal Medicine Care Team Information Content Management Specialist Hernan Remy DO - Interventional Care Team Information Content Management Specialist Pain Medicine Problems Active Problems Provider Date Spinal stenosis of lumbar region Marco Martines M.D. Onset: 10/13/2014 Displacement of lumbar intervertebral disc Marco Martines M.D. Onset: 2013 without myelopathy Low back pain Marco Martines M.D. Onset: 09/23/2013 Social History Type Date Description Comments Sex Unknown Tobacco Use Start: Unknown Never Smoked Cigarettes ETOH Use Denies alcohol use Recreational Drug Use Denies Drug Use Tobacco Use Start: Unknown Patient has never smoked Smoking Status Reviewed: 04/09/19 Patient has never smoked Exercise Type/Frequency Exercises rarely Allergies, Adverse Reactions, Alerts Active Allergies Reaction Severity Comments Date Betadine 09/22/2013 Bactrim 09/22/2013 NSAIDs 09/23/2013 Penicillin 07/31/2017 Sulfa Antibiotics 07/31/2017 Pregabalin 07/31/2017 Medications Active Medications SIG Qnty Indications Ordering Date Provider Bathroom Assist Wall left shoulder M75.42 Armani Jenkins, 07/31/2017 Alex impingron F[place]TH Dexilant 1 by mouth every Unknown 60mg Capsules Flonase Allergy Relief 1 puff each nare Unknown twice daily 50mcg/Act Suspension Cyclobenzaprine HCL 1 by mouth three Unknown 10mg times a day as Tablets needed Albuterol Sulfate as needed Unknown Inhaler Spiriva Respimat inhale two puffs Unknown by mouth every day 1.25mcg/Act Aerosol Furosemide 1 by mouth every Unknown 20mg Tablets day as needed Vitamin B-12 1 by mouth every Unknown Natural day 500mcg Tablets Iron 1 by mouth every Unknown 325(65Fe) mg Tablets day Oxycodone HCL 1 tablet by mouth Unknown 15mg every 4 hours as Tablets needed Calcium Citrate + one by mouth twice Unknown daily Tablets Fentanyl one every 72hours Unknown 50mcg/HR Patches 72HR Lexapro 1 po ddaily 90tabs Unknown 20mg Tablets Multivitamins 2 capsules by 30caps Unknown Capsules mouth daily Vitamin D3 Maximum take one 90caps Unknown Strength capsule/tablet 5000Unit daily by mouth Capsules Synthroid 1 by mouth every 30tabs Unknown 112mcg Tablets day Pramipexole 1 tab po Twice 90tabs Unknown Dihydrochloride daily 1.5mg Tablets Medications Administered in Office Medication SIG Qnty Indications Ordering Provider Date Celestone 3 mg and 3mg Armani Jenkins MD 11/26/2018 Injection Celestone 3 mg and 3mg Armani Jenkins MD 05/15/2018 Injection Celestone 3 mg and 3mg Armani Jenkins MD 07/31/2017 Injection Immunizations Description No Information Available Vital Signs Date Vital Result Comment 04/09/2019 11:47am Height 67 inches 5'7" Weight 281.00 lb Heart Rate 75 /min BP Systolic 130 mmHg BP Diastolic 74 mmHg Body Temperature 97.6 F Pain Level 3 O2 % BldC Oximetry 92 % BMI (Body Mass Index) 44.0 kg/m2 03/18/2019 10:07am Height 67 inches 5'7" Weight 280.00 lb Heart Rate 60 /min BP Systolic Sitting 122 mmHg Lue BP Diastolic Sitting 86 mmHg Lue Pain Level 3 BMI (Body Mass Index) 43.8 kg/m2 Results Description No Information Available Procedures Date Code Description Status 02/24/2019 18387 Nerve Conduction 03-04 Studies Completed 02/24/2019 79655 Needle Electromyography Complete, Five Or More Muscles Completed Studied 11/26/2018 45702 Rad Shoulder Comp, Min. 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 02/10/2019 M47.812 Cervical spondylosis VIKAS Arce 02/10/2019 M48.02 Degenerative cervical spinal stenosis VIKAS Arce 11/26/2018 M75.42 Impingement syndrome of left shoulder Armani Jenkins MD 11/26/2018 M25.512 Pain in left shoulder Armani Jenkins MD Plan of Treatment Future Appointment(s):06/09/2019 11:00 am - Elvis Sousa MD at [facility] Functional Status Description No Information Available Mental Status Description No Information Available Referrals Description No Information Available
--- OUTSIDE RECORDS SUMMARY | 2019-05-03 11:37 | XMS REPORT | Continuity of Care Document ---
:1955 External Reference #:[id number] Author Name Donovan Rodriguez MD Address [facility] [place] [place] [address] Care Team Providers Name Role Phone Kriss Meléndez MD Care Team Information Field Coordinator [phone] Problems Active Problems Provider Date Gastroesophageal reflux disease Donovan Rodriguez MD Onset: 05/07/2018 Anemia due to chronic blood loss Donovan Rodriguez MD Onset: 09/04/2016 Eosinophilic esophagitis Donovan Rodriguez MD Onset: 03/09/2015 Bariatric Surgery Status Post [facility]I [facility] Onset: 01/06/2015 Chest pain [facility]I [facility] Onset: 01/06/2015 Right upper quadrant pain Donovan Rodriguez MD Onset: 05/20/2012 Dysphagia Donovan Rodriguez MD Onset: 02/05/2012 Social History Type Date Description Comments Sex Unknown Tobacco Use Start: Unknown Patient has never smoked Smoking Status Reviewed: 03/18/19 Patient has never smoked Allergies, Adverse Reactions, Alerts Active Allergies Reaction Severity Comments Date Betadine 02/05/2012 Adhesives 02/05/2012 Sulfa Antibiotics 01/06/2015 Augmentin 01/06/2015 Clindamycin 01/06/2015 Latex 05/01/2018 Morphine 05/01/2018 Medications Active Medications SIG Qnty Indications Ordering Date Provider Lexapro Daily Unknown 20mg Tablets Synthroid Daily Unknown 100mcg Tablets Mirapex 11/2 Tabs Daily Unknown 1.5mg. Tablets Multivitamins 1 po qd Unknown Tablets Vit B12 Sublingual Daily Unknown 500mcg Vitamin D3 Maximum Unknown Strength 5000Unit Capsules Citracal Plus Unknown Tablets Fentanyl Unknown 50mcg/HR Patches 72HR Oxycodone HCL prn Unknown 15mg Tablets Proair HFA 2 Puffs prn Unknown 108(90Base) mcg/Act Aerosol Dexilant TK 1 C PO qd Unknown 60mg Capsules DR Spiriva Respimat Inl 2 PFS PO qd Unknown 1.25mcg/Act Aerosol Flovent Diskus Inl 1 puff PO Twice Unknown Daily. RM After U 100mcg/Blist Aerosol Iron 65mg Unknown Immunizations Description No Information Available Vital Signs Date Vital Result Comment 03/18/2019 3:56pm Height 67 inches 5'7" Weight 280.00 lb BP Systolic 132 mmHg BP Diastolic 81 mmHg Heart Rate 73 /min BMI (Body Mass Index) 43.8 kg/m2 05/07/2018 3:55pm Height 68 inches 5'8" Weight 280.00 lb BP Systolic 157 mmHg BP Diastolic 95 mmHg Heart Rate 60 /min BMI (Body Mass Index) 42.6 kg/m2 Results Description No Information Available Procedures Description No Information Available Medical Devices Description No Information Available Encounters Description No Information Available Assessments Date Code Description Provider 03/18/2019 K21.9 Gastro-esophageal reflux disease without Donovan Rodriguez MD esophagitis Plan of Treatment 03/18/2019 - Donovan Rodriguez MDK21.9 Gastro-esophageal reflux disease without esophagitisComments:I had a very long discussion with the patient and her regarding her GERD symptoms. At this point she is doing much better. I have recommended she continue with her Dexilant. Additionally shedoes need to try and lose some weight. She will call me if any of her symptoms worsen or return Functional Status Description No Information Available Mental Status Description No Information Available Referrals Description No Information Available
[2019-05-03 11:59] VITALS: BP 155/86
--- NOTE | 2019-05-03 12:12 | UC ---
General HPI - HPI Summary HPI Summary: pt noted some itching under her abdominal fold and on her R side under bra strap x5 days. areas now have a rash. prior hx fungal infection under abdominal fold that was the same. no fever, MRSA or hx diabetes. poked her L index finger while gardening and felt like she got a sliver. she picked at the site and peeled a piece of skin looking for a sliver. she wants to ensure there is not a sliver. no fever, drainage of streaking. - History of Current Complaint Chief Complaint: UCRash Stated Complaint: SKIN COMPLAINT Time Seen by Provider: 05/03/19 12:02 Hx Obtained From: Patient Hx Last Menstrual Period: n/a Pain Intensity: 3 - Allergy/Home Medications Allergies/Adverse Reactions: Allergies Allergy/AdvReac Type Severity Reaction Status Date / Time Adhesive Tape Allergy Intermediate Blisters Verified 05/03/19 11:47 [Tegaderm Dressing] amoxicillin [From Augmentin] Allergy Rash And Verified 05/03/19 11:47 Itching cephalexin Allergy Rash Verified 05/03/19 11:47 ciprofloxacin Allergy Rash Verified 05/03/19 11:47 clavulanic acid Allergy Rash And Verified 05/03/19 11:47 [From Augmentin] Itching doxycycline Allergy Itching Verified 05/03/19 11:47 NSAIDS (Non-Steroidal Allergy ulcers, Hx Verified 05/03/19 11:47 Anti-Inflamma gastric bypass povidone-iodine Allergy Rash Verified 05/03/19 11:47 [From Betadine] pregabalin [From Lyrica] Allergy Anxiety Verified 05/03/19 11:47 soap [From Betadine] Allergy Rash Verified 05/03/19 11:47 Sulfa (Sulfonamide Allergy Rash Verified 05/03/19 11:47 Antibiotics) SURGICAL PREP Allergy Severe ITCHY RASH Uncoded 05/03/19 11:47 BANDAID ADHESIVE Allergy Intermediate ITCHY Uncoded 05/03/19 11:47 REDNESS ENVIRONMENTAL Allergy Intermediate ITCHY Uncoded 05/03/19 11:47 WATERY EYES, STUFFY Home Medications: Home Medications Fluticasone HFA 110 mcg(NF) [Flovent HFA 110 mcg(NF)] 1 puff .SEE ORDER BID [History Confirmed 05/03/19] Loratadine 10 mg PO DAILY PRN 05/03/19 [History Confirmed 05/03/19] PMH/Surg Hx/FS Hx/Imm Hx - Additional Past Medical History Additional PMH: ALLERGIES, CHRONIC PAIN. Endocrine History: Thyroid Disease Respiratory History: Asthma - Surgical History Surgical History: Yes Surgery Procedure, Year, and Place: R foot surgery Aug 2017; 12/2015 L2-L3 FUSION. 08/2014 DORSAL COLUMN STIMULATOR PUT IN STIMULATOR AND BATTERY AND LEADS WERE REMOVED [place] [facility] [place] CID[place] 2014 SURGERY RIGHT FOOT RUDY REGIONAL; 04/2013 [place] [facility] [place] RIGHT WRIST TENDON REPAIR. RIGHT WRIST/BASE THUMB CLEANED OUT ARTHRITIS; LEFT EYE CATARACT; 1989 RIGHT HAND - GAN[place]ION CYST[place] [facility] [place] 03/1985 BILATERAL TUBAL [place]IGATION[place] [facility] [place]; 09/2005 [place] [facility] [place] 2008 CONVERTED TO GASTRIC [place]PASS[place] [facility] [place]; 01/2010 LAPAROSCOPIC [place], [facility] [place]. 05/2011 UMBILICAL [place]IA [place] [facility] [place]; 04/2012 BUNION REPAIR- RIGHT FOOT W/ SCREW , [facility]; 09/2013 RIGHT FOOT HAMMER TOE REPAIR, [place]; 04/2014 Dorsal Column Stimulator Trial, [facility] [place]; 05/2014 Permanent Dorsal Column Stimulator(SEE ABOVE) - Family History Known Family History: Positive: Hypertension - Social History Lives: With Family Alcohol Use: None Substance Use Type: None Substance Use Comment - Amount & Last Used: fentanyl patch and oxycodone Smoking Status (MU): Never Smoked Tobacco Have You Smoked in the Last Year: No - Immunization History Most Recent Influenza Vaccination: 04/2017 Review of Systems All Other Systems Reviewed And Are Negative: No Constitutional: Negative: Fever, Chills Skin: Positive: Rash Respiratory: Negative: Shortness Of Breath, Cough Cardiovascular: Negative: Palpitations, Chest Pain Musculoskeletal: Positive: Edema - finger. Negative: Decreased ROM - finger Physical Exam Triage Information Reviewed: Yes Appearance: Well-Appearing Vital Signs: Initial Vital Signs Temp 97.9 F 05/03/19 11:51 Pulse 85 05/03/19 11:51 Resp 18 05/03/19 11:51 BP 155/86 05/03/19 11:51 Pulse Ox 92 05/03/19 11:51 Vital Signs Reviewed: Yes Neck: Positive: Supple Respiratory: Positive: No respiratory distress Abdomen Description: Positive: Nontender, Soft, Other: - pt has mild erythema under lower abdominal fold without drainage, odor or vesicle. Musculoskeletal: Positive: ROM Intact Neurological: Positive: Alert Psychological: Positive: Age Appropriate Behavior Skin Exam: Normal, Other - Skin fold under R side of bra strap has erythema without odor, vesicle or weeping. Course/Dx - Differential Dx - Multi-Symptom Differential Diagnoses: Other - non toxic. no caridopulmonary complaints and hx low saturation. skin c/w fungal infections. no concern for cellulitis of shingle. will tx po Diflucan x 3 days(given large areas) and Nystatin powder with close f/u pcp. - Diagnoses Provider Diagnosis: Tinea corporis Discharge ED - Sign-Out/Discharge Documenting (check all that apply): Patient Departure All imaging exams completed and their final reports reviewed: No Studies - Discharge Plan Condition: Stable Disposition: HOME Prescriptions: Fluconazole 150 MG TAB* [Diflucan 150 MG TAB*] 150 mg PO DAILY #3 tablet Nystatin TOP POWDER* 1 applic TOPICAL BID #30 gm Patient Education Materials: Tinea Corporis (ED) Referrals: Kriss Meléndez MD [Primary Care Provider] - Additional Instructions: FOLLOW UP LATER THIS WEEK FOR A RECHECK(3-4 DAYS) OR SOONER IF WORSE. - Billing Disposition and Condition Condition: STABLE Disposition: Home
== END 2019-05-03 12:37 | disposition home or self-care (01) ==
LOC: UCCORT 10:30
DX: B35.4 Tinea corporis (principal); Z88.2 Allergy status to sulfonamides; E07.9 Disorder of thyroid, unspecified; J45.909 Unspecified asthma, uncomplicated
CPT/HCPCS: 99212; G0463

== ENCOUNTER 2019-07-03 12:39 | Emergency (ER) | payer MEDICARE, OTHER ==
--- OUTSIDE RECORDS SUMMARY | 2019-07-03 13:08 | XMS REPORT | Continuity of Care Document ---
:1955 External Reference #:[id number] Author Name Amy Cuevas MD (transmitted by agent of provider Alee Landeros ) Address [address] [place] [id number] Problems Active Problems Provider Date Hypothyroidism KENZIE Rothman Onset: 06/25/2012 Social History Type Date Description Comments Sex Unknown Tobacco Use Start: Unknown Patient has never smoked Smoking Status Reviewed: 06/22/19 Patient has never smoked Allergies, Adverse Reactions, Alerts Active Allergies Reaction Severity Comments Date Avelox 12/03/2004 Zithromax 12/03/2004 Dust 04/02/2007 Mold 04/02/2007 Betadine 02/08/2009 narcotic 05/12/2009 Sulfa 06/25/2012 Medications Active Medications SIG Qnty Indications Ordering Provider Date Lexapro 10mg Unknown Tablets Synthroid Unknown Mirapex Unknown Alprazolam Unknown Vitamin D Unknown Vitamin B 12 Unknown Multivitamins Unknown Calcium + D Unknown Requip Unknown Percocet Unknown Immunizations Description No Information Available Vital Signs Date Vital Result Comment 06/22/2019 10:39am BP Systolic 130 mmHg BP Diastolic 88 mmHg Height 67 inches 5'7" Weight 275.00 lb BMI (Body Mass Index) 43.1 kg/m2 Last Menstrual Period [id number] Parity 3 09/11/2012 10:47am BP Systolic 148 mmHg BP Diastolic 70 mmHg Height 67 inches 5'7" Weight 246.00 lb BMI (Body Mass Index) 38.5 kg/m2 4 Parity 3 Results Description No Information Available Procedures Date Code Description Status 08/18/2007 01567124 Mammogram Completed Medical Devices Description No Information Available Encounters Description No Information Available Assessments Description No Information Available Plan of Treatment No Information Available Functional Status Description No Information Available Mental Status Description No Information Available Referrals Description No Information Available
[2019-07-03 13:29] VITALS: BP 155/79
--- NOTE | 2019-07-03 14:44 | UC ---
Respiratory Complaint HPI - HPI Summary HPI Summary: 63-year-old morbidly obese female with history of asthma presents with 2 day history of intermittent periods of shortness of breath. States these episodes will come on suddenly and it feels like she is unable to catch her breath. The episodes last a few minutes and then subside. Symptoms are associated with some mild to moderate nasal congestion and sinus pressure. She does note dyspnea with exertion but states that this has been going on for a while. She also reports and occasional productive cough for green sputum which is also something that she states periodically. Reports her primary care provider typically puts her on an antibiotic and the cough clears for a couple weeks then returns. Patient states that she has noted some dark stools recently but no karishma blood in stools. Denies fever, chills, chest pain, palpitations, diaphoresis, dizziness, lightheadedness, edema, wheezing, abdominal pain, nausea or vomiting. - History of Current Complaint Chief Complaint: UCRespiratory Stated Complaint: ASTHMA Time Seen by Provider: 07/03/19 14:37 Hx Obtained From: Patient Hx Last Menstrual Period: n/a Pain Intensity: 0 - Allergies/Home Medications Allergies/Adverse Reactions: Allergies Allergy/AdvReac Type Severity Reaction Status Date / Time Adhesive Tape Allergy Intermediate Blisters Verified 07/03/19 13:32 [Tegaderm Dressing] amoxicillin [From Augmentin] Allergy Rash And Verified 07/03/19 13:32 Itching cephalexin Allergy Rash Verified 07/03/19 13:32 ciprofloxacin Allergy Rash Verified 07/03/19 13:32 clavulanic acid Allergy Rash And Verified 07/03/19 13:32 [From Augmentin] Itching clindamycin Allergy Rash Verified 07/03/19 13:32 doxycycline Allergy Itching Verified 07/03/19 13:32 NSAIDS (Non-Steroidal Allergy ulcers, Hx Verified 07/03/19 13:32 Anti-Inflamma gastric bypass povidone-iodine Allergy Rash Verified 07/03/19 13:32 [From Betadine] pregabalin [From Lyrica] Allergy Anxiety Verified 07/03/19 13:32 soap [From Betadine] Allergy Rash Verified 07/03/19 13:32 Sulfa (Sulfonamide Allergy Rash Verified 07/03/19 13:32 Antibiotics) SURGICAL PREP Allergy Severe ITCHY RASH Uncoded 07/03/19 13:32 BANDAID ADHESIVE Allergy Intermediate ITCHY Uncoded 07/03/19 13:32 REDNESS ENVIRONMENTAL Allergy Intermediate ITCHY Uncoded 07/03/19 13:32 WATERY EYES, STUFFY PMH/Surg Hx/FS Hx/Imm Hx - Additional Past Medical History Additional PMH: Chronic pain syndrome Endocrine History: Hypothyroidism Respiratory History: Asthma GI/ History: Gastroesophageal Reflux Psychological History: Depression - Surgical History Surgical History: Yes Surgery Procedure, Year, and Place: Cataract 2017, R foot surgery Aug 2017; 2015 L2-L3 FUSION. 08/2014 DORSAL COLUMN STIMULATOR PUT IN STIMULATOR AND BATTERY AND LEADS WERE REMOVED 07/27/2015 [place] [facility] [place] BY [place] DEL CID; 2014 SURGERY RIGHT FOOT [facility]; 04/2013 LAMINECTOMY, [facility] [place]. RIGHT WRIST TENDON REPAIR. RIGHT WRIST/BASE THUMB CLEANED OUT ARTHRITIS; LEFT EYE CATARACT ; 1989 RIGHT HAND - GANLION CYST, [facility] [place]; 03/1985 BILATERAL TUBAL LIGATION, [facility] [place]; 2005 LAP BAND - [facility] [place]; 2008 CONVERTED TO GASTRIC BYPASS, [facility] [place]; 01/2010 LAPAROSCOPIC CHICO, [facility] [place]. 05/2011 UMBILICAL HERNIA REPAIR, [facility] [place]; 04/2012 BUNION REPAIR- RIGHT FOOT W/ SCREW, [place]; 09/2013 RIGHT FOOT HAMMER TOE REPAIR, [place]; 04/2014 Dorsal Column Stimulator Trial, [facility] [place]; 05/2014 Permanent Dorsal Column Stimulator( SEE ABOVE) - Family History Known Family History: Positive: Hypertension - Social History Occupation: Works From/At Home Lives: With Family Alcohol Use: None Substance Use Type: None Substance Use Comment - Amount & Last Used: fentanyl patch and oxycodone Smoking Status (MU): Never Smoked Tobacco Have You Smoked in the Last Year: No - Immunization History Most Recent Influenza Vaccination: 04/2017 Review of Systems All Other Systems Reviewed And Are Negative: Yes Constitutional: Negative: Fever, Chills ENT: Positive: Nasal Discharge, Sinus Congestion, Sinus Pain/Tenderness. Negative: Sore Throat, Ear Ache Respiratory: Positive: Shortness Of Breath, Cough. Negative: Other - Wheezing Cardiovascular: Negative: Palpitations, Chest Pain Gastrointestinal: Negative: Abdominal Pain, Vomiting, Nausea Genitourinary: Positive: Negative Musculoskeletal: Positive: Negative Neurological: Positive: Negative Is Patient Immunocompromised?: No Physical Exam - Summary Physical Exam Summary: GENERAL APPEARANCE: Alert and cooperative morbidly obese female who appears to be in no acute distress. EYES: Conjunctiva clear. No drainage. EARS: External auditory canals and tympanic membranes clear, hearing grossly intact. NOSE: Mild nasal congestion. No nasal discharge. THROAT: Pharynx normal. No tonsilar inflammation, swelling, exudate, or lesions. Uvula midline. NECK: Neck supple, non-tender without lymphadenopathy. CARDIAC: Normal S1 and S2. No S3, S4 or murmurs. Bradycardic. Rhythm is regular. There is no peripheral edema, cyanosis or pallor. Extremities are warm and well perfused. Capillary refill is less than 2 seconds. Peripheral pulses intact. LUNGS: Breath sounds diminished bilaterally but clear to auscultation without rales, rhonchi, or wheezing. Nonproductive cough. ABDOMEN: Positive bowel sounds. Soft, nondistended, nontender. No guarding or rebound. No masses or hepatosplenomegally. MUSKULOSKELETAL: ROM intact to all extremities. No joint erythema or tenderness. Normal muscular development. Normal gait. SKIN: Skin normal color, texture and turgor with no lesions or eruptions. Triage Information Reviewed: Yes Vital Signs: Initial Vital Signs Temp 97.4 F 07/03/19 13:24 Pulse 58 07/03/19 13:24 Resp 16 07/03/19 13:24 BP 155/79 07/03/19 13:24 Pulse Ox 95 07/03/19 13:24 Vital Signs Reviewed: Yes Diagnostics - Radiology No standard instances Radiology Interpretation Completed By: Radiologist Summary of Radiographic Findings: Order Information: CHEST PA LAT 2 VWS. INDICATION: Shortness of breath. COMPARISON: Chest x-ray March 27, 2017. TECHNIQUE: PA and lateral views of the chest were obtained. FINDINGS: The heart and mediastinum are normal in size and contour. There is again seen elevation of the right hemidiaphragm similar in appearance to the prior chest x- ray. There is linear density at the right lung base also similar to the prior chest x-ray. Elsewhere the lungs are adequately aerated. Visualized bones are normal for the patient's age. There is no radiographic evidence of free air beneath the diaphragm. IMPRESSION: PERSISTENT ELEVATION OF THE RIGHT HEMIDIAPHRAGM UNCHANGED IN APPEARANCE SINCE AND . - EKG Summary of EKG Findings: Sinus bradycardia. Rate 55. T-wave inversion in V1, T- wave flattening in V2-V3. No ectopy or HARITHA. No old EKG available for comparison. Respiratory Course/Dx - Course Course Of Treatment: 63-year-old morbidly obese female with history of asthma presents with 2 day history of intermittent periods of shortness of breath. States these episodes will come on suddenly and it feels like she is unable to catch her breath. The episodes last a few minutes and then subside. Symptoms are associated with some mild to moderate nasal congestion and sinus pressure. She does note dyspnea with exertion but states that this has been going on for a while. She also reports and occasional productive cough for green sputum which is also something that she states periodically. Reports her primary care provider typically puts her on an antibiotic and the cough clears for a couple weeks then returns. Patient states that she has noted some dark stools recently but no karishma blood in stools. Denies fever, chills, chest pain, palpitations, diaphoresis, dizziness, lightheadedness, edema, wheezing, abdominal pain, nausea or vomiting. Afebrile. Hypertensive and mildly bradycardic otherwise vital signs stable. Patient had mild nasal congestion, diminished bilateral breath sounds without rales, rhonchi, or wheezes, nonproductive cough, and otherwise unremarkable exam. 12-lead EKG showed sinus bradycardia with some T- wave inversion in V1 and T wave flattenings in leads V2 and V3. No ectopy or ST elevation. No previous EKG for comparison. Chest x-ray showed elevation of the right hemidiaphragm as well as a linear density at the right lung base which were both present on prior chest x-ray. Patient did have some desaturation with ambulation but reports that this has occurred when she has been tested in the past. I reviewed all of the results with the patient. We discussed that I suspect her symptoms are more related to some of her underlying chronic health concerns although I cannot fully rule out an acute cause although unlikely to be emergent cause. Patient has an appointment scheduled with her primary care provider on 07/06/2019. We discussed that since she had such close follow-up we will start her on a course of azithromycin since she has the productive cough with the understanding that she should have a low threshold for evaluation in the emergency room if she should have any worsening of condition. Anticipatory guidance and warning symptoms were reviewed the patient. Verbalizes understanding and agrees with plan of care. - Differential Dx/Diagnosis Differential Diagnosis/HQI/PQRI: Asthma, Bronchitis, Influenza, Lower Resp Infection Provider Diagnosis: Shortness of breath Discharge ED - Sign-Out/Discharge Documenting (check all that apply): Patient Departure All imaging exams completed and their final reports reviewed: Yes - Discharge Plan Condition: Stable Disposition: HOME Prescriptions: Azithromyxin WILLIAM (NF) [Z-William (Zithromax) 250 mg tabs #6] 2 tab PO .TODAY, THEN 1 DAILY #6 tab Patient Education Materials: Shortness of Breath (ED) Referrals: Kriss Meléndez MD [Primary Care Provider] - 3 Days Additional Instructions: The EKG that was performed in the clinic today showed some nonspecific changes but nothing immediately concerning. Your chest x-ray was unchanged from previous x-rays. With your history of a productive cough and shortness of breath I am going to start she on an antibiotic. Start azithromycin 2 tabs today then 1 tab a day for the next 4 days. Continue to use your inhalers as prescribed. Follow-up with your primary care provider on 07/06/2016 as scheduled. Seek immediate medical attention in the emergency room if you develop fever greater than 100.5 F, have chest pain, feel as if her heart is racing or skipping beats, develop persistent or worsening shortness of breath, become weak or dizzy, or have any worsening of symptoms. - Billing Disposition and Condition Condition: STABLE Disposition: Home
== END 2019-07-03 16:01 | disposition home or self-care (01) ==
LOC: UCEAST 12:39
DX: R06.02 Shortness of breath (principal); J45.909 Unspecified asthma, uncomplicated; E66.01 Morbid (severe) obesity due to excess calories; Z88.0 Allergy status to penicillin; Z88.1 Allergy status to other antibiotic agents; Z88.2 Allergy status to sulfonamides; Z88.6 Allergy status to analgesic agent; Z88.8 Allergy status to other drugs, medicaments and biological substances; Z91.09 Other allergy status, other than to drugs and biological substances; G89.4 Chronic pain syndrome
CPT/HCPCS: 71046; 93005; 99212; G0463

== ENCOUNTER 2019-08-10 12:27 | Emergency (ER) | payer MEDICARE, OTHER ==
--- OUTSIDE RECORDS SUMMARY | 2019-08-10 12:40 | XMS REPORT | Continuity of Care Document ---
:1955 External Reference #:[id number] Author Name Kriss Meléndez M.D. 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 Onset: 10/24/2010 Adjustment disorder with depressed mood Kriss Meléndez M.D. Onset: 10/24/2010 Restless legs Kriss Meléndez M.D. Onset: 10/24/2010 Chronic pain syndrome Kirss Meléndez M.D. Onset: 10/24/2010 Hypothyroidism Kriss Meléndez M.D. Onset: 10/24/2010 Gastroesophageal reflux disease Kriss Meléndez M.D. Onset: 10/24/2010 Hyperlipidemia Kriss Meléndez M.D. Onset: 10/24/2010 Nonvenomous insect bite of scapular region Kriss Meléndez M.D. Onset: 2013 without infection Atrophic vaginitis Kriss Meléndez M.D. Onset: 07/19/2014 Social History Type Date Description Comments Sex Unknown Tobacco Use Start: Unknown Never Smoked Cigarettes ETOH Use Denies alcohol use Tobacco Use Start: Unknown Patient has never smoked Smoking Status Reviewed: 03/18/18 Patient has never smoked Allergies, Adverse Reactions, Alerts Active Allergies Reaction Severity Comments Date Betadine 07/02/2011 Bactrim Severe petechiae 08/21/2011 Cipro ? 09/16/2017 Clindamycin hives 02/17/2019 Inactive Allergies Fentanyl Patch itching 11/30/2012 NKDA 10/24/2010 Percocet 02/21/2014 Medications Active Medications SIG Qnty Indications Ordering Date Provider Buspirone HCL 1 by mouth 90tabs F41.1 Kriss Meléndez, 07/06/2019 7.5mg Tablets three times a M.D. day Chlorhexidine Gluconate 15 ml rise and 354ml K02.52 Kriss Meléndez, 2018 spit once daily M.D. 0.12% Solution Azithromycin 2 by mouth 6tabs J02.9 Kriss Meléndez, 01/19/2019 250mg Tablets today, 1 by M.D. mouth day 2 thru 5 Synthroid 1 by mouth 90tabs E03.9 Kriss Meléndez, 11/02/2018 112mcg Tablets every day M.D. Spiriva Respimat 2 puff daily 4gm Kriss Meléndez, 03/04/2018 2.5mcg/Act M.D. Aerosol T.E.D. Anti-Embolism wear 24 hours 2Pair I87.2 Kriss Meléndez, 01/07/2018 Stockings Knee daily to M.D. Length/XL/Long prevent edema [facility] -30-40 - dx of i83.028 Pramipexole 1 by mouth 90tabs Kriss Meléndez, 11/12/2017 Dihydrochloride every day M.D. 1.5mg Tablets Proair HFA 2 puffs 4 x 8.500gm J20.9 Kriss Meléndez, 10/08/2017 108(90Base) daily M.D. mcg/Act Aerosol Furosemide 1 and 1/2 by 150tabs L20.9 Kriss Meléndez, 03/04/2017 80mg Tablets mouth every day M.D. Multi Geovani Minerals 2 by mouth 90tabs D50.9 Kriss Meléndez, 05/13/2016 every day M.D. Tablets Escitalopram Oxalate 1 by mouth 90tabs Kriss Meléndez, 04/19/2014 20mg every day M.D. Tablets Vitamin D 1 by mouth 90tabs Kriss Meléndez, 10/27/2009 1000Unit Tablets every day M.D. Calcium-D tid Micah Weems MD 10/27/2009 [id number] Capsules Fentanyl apply to skin 10units Unknown 50mcg/HR Patches and change 72HR every 72 hours Oxycodone HCL 1 by mouth four Unknown 15mg Tablets times a day Vitamin B-12 1 by mouth Unknown 500mcg Tablets every day Dexilant 1 by mouth 90caps Kriss Meléndez, 60mg Capsules DR every day Kana Immunizations CPT Code Status Date Vaccine Lot # [id number] Given 04/13/2019 Influenza Virus (Quadrivalent)Splitvirus 3 Years Of Age And Older Q2035 Given 04/13/2019 Influenza Virus (Quadrivalent)Splitvirus 3 [id number] Years Of Age And Older [id number] Given 04/13/2019 Influenza Virus Vaccine, Quadrivalent, Split, Preservative Free Q2035 Given 05/11/2018 Influenza Virus (Quadrivalent)Splitvirus 3 Years Of Age And Older Q2037 Given 05/13/2016 Influenza Vaccine (Fluvirin) 3 Years Of Age Or [id number] Older Q2035 Given 05/08/2015 Influenza Virus (Quadrivalent)Splitvirus 3 [id number] Years Of Age And Older Q2037 Given 06/07/2014 Influenza Vaccine (Fluvirin) 3 Years Of Age Or Older [id number] Given 05/19/2013 Influenza Virus (Quadrivalent)Splitvirus 3 [id number] Years Of Age And Older Q2037 Given 06/02/2012 Influenza Vaccine (Fluvirin) 3 Years Of Age Or Older Q2037 Given 06/02/2012 Influenza Vaccine (Fluvirin) 3 Years Of Age Or [id number] Older Q2036 Given 07/02/2011 Flulaval [id number] Given 07/02/2011 Influenza Vaccine 29001 Given 05/08/2010 Influenza Vaccine [id number] Vital Signs Date Vital Result Comment 07/06/2019 10:51am BP Systolic 148 mmHg BP Diastolic 96 mmHg Heart Rate 60 /min Respiratory Rate 18 /min Weight 277.00 lb 01/19/2019 11:48am BP Systolic 140 mmHg BP Diastolic 90 mmHg Heart Rate 86 /min Body Temperature 98.8 F Height 68 inches 5'8" Weight 269.00 lb BMI (Body Mass Index) 40.9 kg/m2 O2 % BldC Oximetry 90 % Results Test Acquired Date Facility Test Result H/L Range Note Laboratory test 06/23/2019 [facility] 4.94 Normal 0.34- 5.[address] (Thyroid mcIU/[place] [address] Stim [phone] Horm) Free T4 (Free Thyroxine) 0.95 ng/dL Normal 0.61-1.12 Procedures Date Code Description Status 06/29/2019 25610 Non-Invcorrotid/Comp /Bilat Study Completed 06/28/2019 47946 Echocardiography Completed 06/23/2019 45742 EKG-Tracing & Report Completed 10/28/2013 135498370 Bone Mineral Density Test Completed 09/20/2013 [id number] Mammogram Completed Medical Devices Description No Information Available Encounters Type Date Location Provider Dx Diagnosis Office Visit 07/06/2019 Main Office Kriss Meléndez M.D. J45.30 Mild persistent 10:45a asthma, uncomplicated J01.90 Acute sinusitis, unspecified F41.1 Generalized anxiety disorder Office Visit 02/17/2019 3:00p Main Office Kriss Meléndez J32.9 Chronic sinusitis, M.D. unspecified Office Visit 01/19/2019 11:45a Main Office Kriss Meléndez J02.9 Acute pharyngitis, M.D. unspecified K02.52 Dental caries on pit and fissure surfc penetrat into dentin Office Visit 01/04/2019 1:30p Main Office Kriss Meléndez, M50.13 Cervical disc M.D. disorder w radiculopathy, cervicothor region E03.9 Hypothyroidism, unspecified G25.81 Restless legs syndrome K21.9 Gastro-esophageal reflux disease without esophagitis Assessments Date Code Description Provider 07/06/2019 J45.30 Mild persistent asthma, uncomplicated Kriss Meléndez M.D. 07/06/2019 J01.90 Acute sinusitis, unspecified Kriss Meléndez M.D. 07/06/2019 F41.1 Generalized anxiety disorder Kriss Meléndez M.D. 06/29/2019 I65.23 Occlusion and stenosis of bilateral carotid Kriss Meléndez M.D. arteries 06/28/2019 I34.0 Nonrheumatic mitral (valve) insufficiency Kriss Meléndez M.D. 06/23/2019 E78.2 Mixed hyperlipidemia Kriss Meléndez M.D. 04/13/2019 Z23 Encounter for immunization Kriss Meléndez M.D. 02/17/2019 J32.9 Chronic sinusitis, unspecified Kriss Meléndez M.D. 01/19/2019 J02.9 Acute pharyngitis, unspecified Kriss Meléndez M.D. 01/19/2019 K02.52 Dental caries on pit and fissure surface Kriss Meléndez M.D. penetrating into dentin 01/04/2019 M50.13 Cervical disc disorder with radiculopathy, Kriss Meléndez M.D. cervicothoracic region 01/04/2019 E03.9 Hypothyroidism, unspecified Kriss Meléndez M.D. 01/04/2019 G25.81 Restless legs syndrome Kriss Meléndez M.D. 01/04/2019 K21.9 Gastro-esophageal reflux disease without Kriss Meléndez M.D. esophagitis Plan of Treatment Future Appointment(s):07/19/2019 2:00 pm - Nurse at Main Khpipa5807/22/2019 12: 15 pm - Kriss Meléndez M.D. at Main Ewgodm3609/02/2018 - Kriss Meléndez M.D.K59.03 Drug induced constipationNew Medication:Polyethylene Glycol 1500 - 1 tbsp in 8 oz water or juice use dailyLinzess 72 mcg - 1 by mouth on empty stomach before 1st meal of the dayB37.3 Candidiasis of vulva and vaginaNew Medication: Fluconazole 100 mg - 1 by mouth every day Functional Status Description No Information Available Mental Status Description No Information Available Referrals Description No Information Available
--- OUTSIDE RECORDS SUMMARY | 2019-08-10 12:40 | XMS REPORT | Continuity of Care Document ---
:1955 External Reference #:[id number] Author Name Lloyd Blanchard M.D. (transmitted by agent of provider Joana Elliott) Address [address] [facility] [address] [place] [address] Care Team Providers Name Role Phone Kriss Meléndez MD - Internal Medicine Care Team Information Dance Master Hernan Remy DO - Interventional Care Team Information Dance Master Pain Medicine Problems Active Problems Provider Date Low back pain Marco Martines M.D. Onset: 09/23/2013 Displacement of lumbar intervertebral disc Marco Martines M.D. Onset: 2013 without myelopathy Spinal stenosis of lumbar region Marco Martines M.D. Onset: 10/13/2014 Social History Type Date Description Comments Sex Unknown Tobacco Use Start: Unknown Never Smoked Cigarettes ETOH Use Denies alcohol use Recreational Drug Use Denies Drug Use Tobacco Use Start: Unknown Patient has never smoked Smoking Status Reviewed: 06/09/19 Patient has never smoked Exercise Type/Frequency Exercises rarely Allergies, Adverse Reactions, Alerts Active Allergies Reaction Severity Comments Date Betadine 09/22/2013 Bactrim 09/22/2013 NSAIDs 09/23/2013 Penicillin 07/31/2017 Sulfa Antibiotics 07/31/2017 Pregabalin 07/31/2017 Medications Active Medications SIG Qnty Indications Ordering Date Provider Bathroom Assist Wall left shoulder M75.42 Armani Jenkins, 07/31/2017 Bar impingement Dexilant 1 by mouth every Unknown 60mg Capsules DR day Flonase Allergy Relief 1 puff each nare [...] Available Vital Signs Date Vital Result Comment 06/09/2019 11:40am Height 67 inches 5'7" Weight 281.00 lb BP Systolic 132 mmHg BP Diastolic 84 mmHg Pain Level 4 BMI (Body Mass Index) 44.0 kg/m2 04/09/2019 11:47am Height 67 inches 5'7" Weight 281.00 lb Heart Rate 75 /min BP Systolic 130 mmHg BP Diastolic 74 mmHg Body Temperature 97.6 F Pain Level 3 O2 % BldC Oximetry 92 % BMI (Body Mass Index) 44.0 kg/m2 Results Description No Information Available Procedures Date Code Description Status 02/24/2019 00707 Nerve Conduction 03-04 Studies Completed 02/24/2019 82720 Needle Electromyography Complete, Five Or More Muscles Completed Studied Medical Devices Description No Information Available Encounters Type Date Location Provider Dx Diagnosis Office Visit 04/09/2019 Neurosurgery Jory Guthrie, M54.16 Radiculopathy, 11:30a [facility] lumbar region M43.16 Spondylolisthesis, lumbar region M48.02 Spinal stenosis, cervical region Office Visit 03/18/2019 Neurosurgery Jory M47.816 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[facility] myelopathy or radiculopathy, lumbar region Office Visit 02/10/2019 Neurosurgery Jory M47.812 Spondylosis w/o 1:00p [facility] myelopathy or radiculopathy, cervical region M48.02 Spinal stenosis, cervical region Assessments Date Code Description Provider 06/09/2019 M54.16 Lumbar radiculopathy Elvis Sousa MD 06/09/2019 M43.16 Lumbar spondylolisthesis Elvis Sousa MD 06/09/2019 M48.02 Spinal stenosis, cervical region Elvis Sousa MD 06/09/2019 M41.9 Scoliosis, unspecified Elvis Sousa MD 04/09/2019 M54.16 Lumbar radiculopathy [facility] Arce 04/09/2019 M43.16 Lumbar spondylolisthesis VIKAS Arce 04/09/2019 M48.02 Spinal stenosis, cervical region VIKAS Arce 03/18/2019 M47.816 Lumbar spondylosis [facility] Arce 02/24/2019 M79.602 Pain in left arm Brittany Montes M.D. 02/10/2019 M47.812 Cervical spondylosis [facility] Arce 02/10/2019 M48.02 Degenerative cervical spinal stenosis [facility] Arce Plan of Treatment Future Appointment(s):12/10/2019 10:00 am - Elvis Sousa MD at [facility]/09/2019 - Elvis Sousa MDM54.16 Radiculopathy, lumbar misfxzY16.16 Spondylolisthesis, lumbar axikyiN86.02 Spinal stenosis, cervical doxbflV34.9 Scoliosis, unspecifiedFollow up:RV in 6 months Functional Status Description No Information Available Mental Status Description No Information Available Referrals Description No Information Available
--- OUTSIDE RECORDS SUMMARY | 2019-08-10 12:40 | XMS REPORT | Continuity of Care Document ---
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 Pain Medicine Problems Active Problems Provider Date [...] Patient has never smoked Smoking Status Reviewed: 07/23/19 Patient has never smoked Exercise Type/Frequency Exercises rarely Allergies, Adverse Reactions, Alerts Active Allergies Reaction Severity Comments Date Betadine 09/22/2013 Bactrim 09/22/2013 NSAIDs 09/23/2013 Penicillin 07/31/2017 Sulfa Antibiotics 07/31/2017 Pregabalin 07/31/2017 Medications Active Medications SIG Qnty Indications Ordering Date Provider Bathroom Assist Wall left shoulder M75.42 Armani Jenkins, 07/31/2017 Alex aquino MD Dexilant 1 by mouth every Unknown 60mg [...] Available Vital Signs Date Vital Result Comment 07/23/2019 8:36am Height 67 inches 5'7" Weight 278.00 lb Heart Rate 64 /min BP Systolic Sitting 142 mmHg BP Diastolic Sitting 80 mmHg O2 % BldC Oximetry 90 % BMI (Body Mass Index) 43.5 kg/m2 06/09/2019 11:40am Height 67 inches 5'7" Weight 281.00 lb BP Systolic 132 mmHg BP Diastolic 84 mmHg Pain Level 4 BMI (Body Mass Index) 44.0 kg/m2 Results Description No Information Available Procedures Date Code Description Status 02/24/2019 58144 Nerve Conduction 03-04 Studies Completed 02/24/2019 07119 Needle Electromyography Complete, Five Or More Muscles Completed Studied Medical Devices Description No Information Available Encounters Type Date Location Provider Dx Diagnosis Office Visit 06/09/2019 Neurosurgery Lelosilmaxime M54.16 Radiculopathy, 11:00a [facility] Chema Sousa MD lumbar region M43.16 Spondylolisthesis, lumbar region M40.205 Unspecified kyphosis, thoracolumbar region E66.01 Morbid (severe) obesity due to excess calories Z68.41 Body mass index (BMI) 40.0-44.9, adult M48.02 Spinal stenosis, cervical region Office Visit 04/09/2019 Neurosurgery Sharkumar M54.16 Radiculopathy, 11:30a Services [facility] VIKAS Baez lumbar region M43.16 Spondylolisthesis, lumbar region M48.02 Spinal stenosis, cervical region Office Visit 03/18/2019 Neurosurgery Jory M47.816 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[facility] myelopathy or radiculopathy, lumbar region Office Visit 02/10/2019 Neurosurgery Jory M47.812 Spondylosis w/o 1:00p [facility] myelopathy or radiculopathy, cervical region M48.02 Spinal stenosis, cervical region Assessments Date Code Description Provider 07/23/2019 R06.02 Shortness of breath Dilcia Sotomayor MD 07/23/2019 J45.909 Unspecified asthma, uncomplicated Dilcia Sotomayor MD 07/23/2019 K21.9 Gastro-esophageal reflux disease without Dilcia Sotomayor MD esophagitis 07/23/2019 G47.33 Obstructive sleep apnea (adult) Dilcia Sotomayor MD (pediatric) 07/23/2019 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 Dilcia Sotomayor MD 06/09/2019 M54.16 Lumbar radiculopathy Elvis Sousa MD 06/09/2019 M43.16 Lumbar spondylolisthesis Elvis Sousa MD 06/09/2019 M40.205 Unspecified kyphosis, thoracolumbar Elvis Sousa MD region 06/09/2019 E66.01 Morbid (severe) obesity due to excess Elvis Sousa MD calories 06/09/2019 Z68.41 Body mass index (BMI) 40.0-44.9, adult Vassilios Dimopoulos, MD 06/09/2019 M48.02 Spinal stenosis, cervical region Elvis Sousa MD 04/09/2019 M54.16 Lumbar radiculopathy VIKAS Arce 04/09/2019 M43.16 Lumbar spondylolisthesis VIKAS Arce 04/09/2019 M48.02 Spinal stenosis, cervical region VIKAS Arce 03/18/2019 M47.816 Lumbar spondylosis VIKAS Arce 02/24/2019 M79.602 Pain in left arm Brittany Montes M.D. 02/10/2019 M47.812 Cervical spondylosis VIKAS Arce 02/10/2019 M48.02 Degenerative cervical spinal stenosis VIKAS Arce Plan of Treatment Future Appointment(s):09/09/2019 1:30 pm - Dilcia Sotomayor MD at [facility]12/10/2019 10:00 am - Elvis Sousa MD at [facility]07/23/2019 - Dilcia Sotomayor, MDR06.02 Shortness of hqtayvK98.909 Unspecified asthma, qvzmygjvmzcwfJ79.9 Gastro-esophageal reflux disease without xkhmfsmhfbhN26.33 Obstructive sleep apnea (adult) (pediatric) New Orders:Home Sleep Testing, Scheduled: 07/23/19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 Functional Status Description No Information Available Mental Status Description No Information Available Referrals Description No Information Available
--- OUTSIDE RECORDS SUMMARY | 2019-08-10 12:40 | XMS REPORT | Continuity of Care Document ---
:1955 External Reference #:[id number] Author Name Kriss Meléndez M.D. 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 Onset: 10/24/2010 Adjustment disorder with depressed mood Kriss Meléndez M.D. Onset: 10/24/2010 Restless legs Kriss Meléndez M.D. Onset: 10/24/2010 Chronic pain syndrome Kriss Meléndez M.D. Onset: 10/24/2010 Hypothyroidism Kriss Meléndez [...] Medications SIG Qnty Indications Ordering Date Provider Chlorhexidine Gluconate 15 ml rise and 354ml [...] Knee daily to M.D. Length/XL/Long prevent edema [facility] [place] -30-40 - dx of i83.028 Pramipexole 1 [...] M.D. Calcium-D tid Micah Weems MD 10/27/2009 [id number] Capsules Fentanyl apply to skin 10units Unknown 50mcg/HR Patches and change 72HR every 72 hours Oxycodone HCL 1 by mouth four Unknown 15mg Tablets times a day Vitamin B-12 1 by mouth Unknown 500mcg Tablets every day Dexilant 1 by mouth 90caps Kriss Meléndez, 60mg Capsules every day Kana Immunizations CPT Code Status Date Vaccine Lot # [id number] Given 04/13/2019 Influenza Virus (Quadrivalent)Splitvirus 3 Years Of Age And Older Q2035 Given 04/13/2019 Influenza Virus (Quadrivalent)Splitvirus 3 [id number] Years Of Age And Older 81886 Given 04/13/2019 Influenza Virus Vaccine, Quadrivalent, Split, Preservative Free Q2035 Given 05/11/2018 Influenza Virus (Quadrivalent)Splitvirus 3 Years Of Age And Older Q2037 Given 05/13/2016 Influenza Vaccine (Fluvirin) 3 Years Of Age Or [id number] Older Q2035 Given 05/08/2015 Influenza Virus (Quadrivalent)Splitvirus 3 [id number] Years Of Age And Older Q2037 Given 06/07/2014 Influenza Vaccine (Fluvirin) 3 Years Of Age Or Older Q2035 Given 05/19/2013 Influenza Virus (Quadrivalent)Splitvirus 3 [id number] Years Of Age And Older Q2037 Given 06/02/2012 Influenza Vaccine (Fluvirin) 3 Years Of Age Or Older Q2037 Given 06/02/2012 Influenza Vaccine (Fluvirin) 3 Years Of Age Or [id number] Older Q2036 Given 07/02/2011 Flulaval [id number] Given 07/02/2011 Influenza Vaccine 81430 Given 05/08/2010 Influenza Vaccine [id number] Vital Signs Date Vital Result Comment 01/19/2019 11:48am BP Systolic 140 mmHg BP Diastolic 90 mmHg Heart Rate 86 /min Body Temperature 98.8 F Height 68 inches 5'8" Weight 269.00 lb BMI (Body Mass Index) 40.9 kg/m2 O2 % BldC Oximetry 90 % 01/04/2019 1:25pm BP Systolic 140 mmHg BP Diastolic 86 mmHg Heart Rate 78 /min Height 68 inches 5'8" Weight 268.00 lb BMI (Body Mass Index) 40.7 kg/m2 O2 % BldC Oximetry 87 % Results Test Acquired Date Facility Test Result H/L Range Note Laboratory test 06/23/2019 [facility] TSH 4.94 Normal 0.34- 5.[address] (Thyroid mcIU/[place] [address] Stim [phone] [facility]) Free T4 (Free Thyroxine) 0.95 ng/dL Normal 0.61-1.12 Procedures Date Code Description Status 06/29/2019 14049 Non-Invcorrotid/Comp /Bilat Study Completed 06/28/2019 37583 Echocardiography Completed 06/23/2019 35070 EKG-Tracing & Report Completed 10/28/2013 124964434 Bone Mineral Density Test Completed 09/20/2013 75095524 Mammogram Completed Medical Devices Description No Information Available Encounters Type Date Location Provider Dx Diagnosis Office Visit 02/17/2019 Main Office Kriss Meléndez M.D. J32.9 Chronic sinusitis, 3:00p unspecified Office Visit 01/19/2019 Main Office Kriss Meléndez M.D. J02.9 Acute pharyngitis, 11:45a unspecified K02.52 Dental caries on pit and fissure surfc penetrat into dentin Office Visit 01/04/2019 1:30p Main Office Kriss Meléndez M50.13 Cervical disc M.D. disorder w radiculopathy, cervicothor region E03.9 Hypothyroidism, unspecified G25.81 Restless legs syndrome K21.9 Gastro-esophageal reflux disease without esophagitis Assessments Date Code Description Provider 06/29/2019 I65.23 Occlusion and stenosis of bilateral [...] Meléndez M.D. esophagitis Plan of Treatment Future Appointment(s):07/06/2019 10:45 am - Kriss Meléndez M.D. at Main [id number] - Kriss Meléndez M.D.K59.03 Drug induced constipationNew Medication: Polyethylene Glycol 1500 - 1 tbsp in 8 oz water or juice use dailyLinzess 72 mcg - 1 by mouth on empty stomach before 1st meal of the dayB37.3 Candidiasis of vulva and vaginaNew Medication:Fluconazole 100 mg - 1 by mouth every day Functional Status Description No Information Available Mental Status Description No Information Available Referrals Description No Information Available
--- OUTSIDE RECORDS SUMMARY | 2019-08-10 12:40 | XMS REPORT | Continuity of Care Document ---
:1955 External Reference #:[id number] Author Name Kriss Meléndez M.D. 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 Length/XL/Long prevent edema [facility] [place] -30-40 - dx of i83.028 Pramipexole 1 [...] every day M.D. Tablets Escitalopram Oxalate 1 and 1/2 120tabs Kriss Meléndez, 04/19/2014 20mg tablets by M.D. Tablets mouth every day Vitamin D 1 by mouth 90tabs Kriss Meléndez, 10/27/2009 1000Unit Tablets every day M.D. Calcium-D tid Micah Weems MD 10/27/2009 [id number] Capsules Fentanyl apply to skin 10units Unknown [...] Q2035 Given 04/13/2019 Influenza Virus (Quadrivalent)Splitvirus 3 [id number] Years Of Age And Older 05998 Given 04/13/2019 Influenza Virus Vaccine, Quadrivalent, Split, Preservative Free Q2035 Given 05/11/2018 Influenza Virus (Quadrivalent)Splitvirus 3 Years Of Age And Older Q2037 Given 05/13/2016 Influenza Vaccine (Fluvirin) 3 Years Of Age Or [id number] Older Q2035 Given 05/08/2015 Influenza Virus (Quadrivalent)Splitvirus 3 [id number] Years Of Age And Older Q2037 Given 06/07/2014 Influenza Vaccine (Fluvirin) 3 Years Of Age Or Older Q2035 Given 05/19/2013 Influenza Virus (Quadrivalent)Splitvirus 3 [id number] Years Of Age And Older Q2037 Given 06/02/2012 Influenza Vaccine (Fluvirin) 3 Years Of Age Or Older Q2037 Given 06/02/2012 Influenza Vaccine (Fluvirin) 3 Years Of Age Or [id number] Older Q2036 Given 07/02/2011 Flulaval [id number] 05929 Given 07/02/2011 Influenza Vaccine 03383 Given 05/08/2010 Influenza Vaccine [id number] Vital Signs Date Vital Result Comment 07/22/2019 10:46am BP Systolic 124 mmHg BP Diastolic 80 mmHg Heart Rate 68 /min Respiratory Rate 16 /min Height 64.50 inches 5'4.50" Weight 276.00 lb BMI (Body Mass Index) 46.6 kg/m2 O2 % BldC Oximetry 92 % 07/06/2019 10:51am BP Systolic 148 mmHg BP Diastolic 96 mmHg Heart Rate 60 /min Respiratory Rate 18 /min Weight 277.00 lb Results Test Acquired Date Facility Test Result H/L Range Note Laboratory test 06/23/2019 [facility] [facility] TSH 4.94 Normal 0.34- 5.[address] (Thyroid mcIU/[place] [address] Stim [phone] H[facility]) Free T4 (Free Thyroxine) 0.95 ng/dL Normal 0.61-1.12 Procedures Date Code Description Status 06/29/2019 16183 Non-Invcorrotid/Comp /Bilat Study Completed 06/28/2019 51910 Echocardiography Completed 06/23/2019 26893 EKG-Tracing & Report Completed 10/28/2013 092164714 Bone Mineral Density Test Completed 09/20/2013 96541297 Mammogram Completed Medical Devices Description No Information Available Encounters Type Date Location Provider Dx Diagnosis Office Visit 07/06/2019 Main Office Kriss Meléndez M.D. J45.30 Mild persistent 10:45a asthma, uncomplicated J01.90 Acute sinusitis, unspecified F41.1 Generalized anxiety disorder Office Visit 02/17/2019 3:00p Main Office Kriss Meléndez J32.9 Chronic sinusitis, M.D. unspecified Assessments Date Code Description Provider 07/22/2019 J45.30 Mild persistent asthma, uncomplicated Kriss Meléndez M.D. 07/22/2019 F41.1 Generalized anxiety disorder Kriss Meléndez M.D. 07/22/2019 F43.21 Adjustment disorder with depressed mood Kriss Meléndez M.D. 07/06/2019 J45.30 Mild persistent asthma, uncomplicated Kriss [...] J32.9 Chronic sinusitis, unspecified Kriss Meléndez M.D. Plan of Treatment Future Appointment(s):10/15/2019 9:15 am - Nurse at Main [facility]10/18/2019 11: 00 am - Kriss Meléndez M.D. at Main [facility]309/02/2018 - Kriss Meléndez M.D.K59.03 Drug induced constipationNew [...]
--- OUTSIDE RECORDS SUMMARY | 2019-08-10 12:40 | XMS REPORT | Continuity of Care Document ---
:1955 External Reference #:[id number] Author Name Kriss Meléndez M.D. 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 Length/XL/Long prevent edema [facility] [place] -30-40 - dx of i83.028 Pramipexole 1 [...] M.D. Calcium-D tid Micah Weems MD 10/27/2009 [id number] Capsules Fentanyl apply to skin 10units Unknown [...] Q2035 Given 04/13/2019 Influenza Virus (Quadrivalent)Splitvirus 3 [id number] Years Of Age And Older 29752 Given 04/13/2019 Influenza Virus Vaccine, Quadrivalent, Split, Preservative Free Q2035 Given 05/11/2018 Influenza Virus (Quadrivalent)Splitvirus 3 Years Of Age And Older Q2037 Given 05/13/2016 Influenza Vaccine (Fluvirin) 3 Years Of Age Or [id number] Older Q2035 Given 05/08/2015 Influenza Virus (Quadrivalent)Splitvirus 3 [id number] Years Of Age And Older Q2037 Given 06/07/2014 Influenza Vaccine (Fluvirin) 3 Years Of Age Or Older Q2035 Given 05/19/2013 Influenza Virus (Quadrivalent)Splitvirus 3 [id number] Years Of Age And Older Q2037 Given 06/02/2012 Influenza Vaccine (Fluvirin) 3 Years Of Age Or Older Q2037 Given 06/02/2012 Influenza Vaccine (Fluvirin) 3 Years Of Age Or [id number] Older Q2036 Given 07/02/2011 Flulaval [id number] 32874 Given 07/02/2011 Influenza Vaccine 57360 Given 05/08/2010 Influenza Vaccine [id number] Vital Signs Date Vital Result Comment 07/22/2019 [...] Result H/L Range Note Laboratory test 06/23/2019 [facility] TSH 4.94 Normal 0.34- 5.[address] (Thyroid mcIU/[place] [address] Stim [phone] Horm) Free T4 (Free Thyroxine) 0.95 ng/dL Normal 0.61-1.12 Procedures Date Code Description Status 06/29/2019 13657 Non-Invcorrotid/Comp /Bilat Study Completed 06/28/2019 72214 Echocardiography Completed 06/23/2019 73252 EKG-Tracing & Report Completed 10/28/2013 967362434 Bone Mineral Density Test Completed 09/20/2013 [id number] Mammogram Completed Medical Devices Description No Information Available Encounters Type Date Location Provider Dx Diagnosis Office Visit 07/06/2019 Main Office Kriss Meléndez M.D. J45.30 Mild persistent 10:45a asthma, uncomplicated J01.90 Acute sinusitis, unspecified F41.1 Generalized anxiety disorder Office Visit 02/17/2019 3:00p Main Office Ronald Griffin32.9 Chronic sinusitis, M.DJalil unspecified Assessments Date Code Description Provider 07/06/2019 J45.30 [...] unspecified Kriss Meléndez M.D. Plan of Treatment 09/02/2018 - Kriss Meléndez M.D.K59.03 Drug induced constipationNew [...]
[2019-08-10 12:47] VITALS: BP 145/82
--- NOTE | 2019-08-10 13:00 | UC ---
Respiratory Complaint HPI - HPI Summary HPI Summary: Pt states she is congested, coughing, wheezing for the past 2 days. 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 - History of Current Complaint Chief Complaint: UCGeneralIllness Stated Complaint: COUGH, CONGESTION, DIFFICULTY BREATHING Time Seen by Provider: 08/10/19 12:55 Hx Obtained From: Patient Hx Last Menstrual Period: n/a Onset/Duration: Sudden Onset, Lasting Weeks Timing: Constant Severity Initially: Mild Severity Currently: Moderate Pain Intensity: 4 Character: Cough: Nonproductive Aggravating Factors: Deep Breaths, Recumbent Position Associated Signs And Symptoms: Positive: Dyspnea, Wheezing, Hemoptysis, URI, Nasal Congestion, Sinus Discomfort - Allergies/Home Medications Allergies/Adverse Reactions: Allergies Allergy/AdvReac Type Severity Reaction Status Date / Time Adhesive Tape Allergy Intermediate Blisters Verified 08/10/19 12:48 [Tegaderm Dressing] amoxicillin [From Augmentin] Allergy Rash And Verified 08/10/19 12:48 Itching cephalexin Allergy Rash Verified 08/10/19 12:48 ciprofloxacin Allergy Rash Verified 08/10/19 12:48 clavulanic acid Allergy Rash And Verified 08/10/19 12:48 [From Augmentin] Itching clindamycin Allergy Rash Verified 08/10/19 12:48 doxycycline Allergy Itching Verified 08/10/19 12:48 NSAIDS (Non-Steroidal Allergy ulcers, Hx Verified 08/10/19 12:48 Anti-Inflamma gastric bypass povidone-iodine Allergy Rash Verified 08/10/19 12:48 [From Betadine] pregabalin [From Lyrica] Allergy Anxiety Verified 08/10/19 12:48 soap [From Betadine] Allergy Rash Verified 08/10/19 12:48 Sulfa (Sulfonamide Allergy Rash Verified 08/10/19 12:48 Antibiotics) SURGICAL PREP Allergy Severe ITCHY RASH Uncoded 08/10/19 12:48 BANDAID ADHESIVE Allergy Intermediate ITCHY Uncoded 08/10/19 12:48 REDNESS ENVIRONMENTAL Allergy Intermediate ITCHY Uncoded 08/10/19 12:48 WATERY EYES, STUFFY PMH/Surg Hx/FS Hx/Imm Hx Previously Healthy: No Endocrine History: Hyperthyroidism Cardiovascular History: Cardiac Disease, Hypertension - Surgical History Surgical History: Yes Surgery Procedure, Year, and Place: Cataract 2018, R foot surgery Aug 2017; 2015 L2-L3 FUSION. 08/2014 DORSAL COLUMN STIMULATOR PUT IN STIMULATOR AND BATTERY AND LEADS WERE REMOVED 07/27/2015 PER [facility] REPORT BY DR DEL CID; 2014 SURGERY RIGHT FOOT [facility]; 04/2013 LAMINECTOMY, [facility]. RIGHT WRIST TENDON REPAIR. RIGHT WRIST/BASE THUMB CLEANED OUT ARTHRITIS; LEFT EYE CATARACT ; 1989 RIGHT HAND - GANLION CYST, [facility]; 03/1985 BILATERAL TUBAL LIGATION, [facility]; 2005 LAP BAND - [facility]; 2008 CONVERTED TO GASTRIC BYPASS, [facility]; 01/2010 LAPAROSCOPIC CHICO, [facility]. 05/2011 UMBILICAL HERNIA REPAIR, [facility]; 04/2012 BUNION REPAIR- RIGHT FOOT W/ SCREW, [facility]; 09/2013 RIGHT FOOT HAMMER TOE REPAIR, [place]; 04/2014 Dorsal Column Stimulator Trial, [facility]; 05/2014 Permanent Dorsal Column Stimulator( SEE ABOVE) - Family History Known Family History: Positive: Hypertension - Social History Alcohol Use: None Substance Use Type: None Substance Use Comment - Amount & Last Used: fentanyl patch and oxycodone Smoking Status (MU): Never Smoked Tobacco Have You Smoked in the Last Year: No - Immunization History Most Recent Influenza Vaccination: 04/2017 Review of Systems All Other Systems Reviewed And Are Negative: Yes Constitutional: Positive: Fatigue ENT: Positive: Sore Throat, Nasal Discharge, Sinus Congestion Respiratory: Positive: Cough Is Patient Immunocompromised?: No Physical Exam Triage Information Reviewed: Yes Appearance: Well-Nourished, Ill-Appearing, Pain Distress Vital Signs: Initial Vital Signs Temp 99.0 F 08/10/19 12:42 Pulse 67 08/10/19 12:42 Resp 16 08/10/19 12:42 BP 145/82 08/10/19 12:42 Pulse Ox 96 08/10/19 12:42 Vital Signs Reviewed: Yes Eye Exam: Normal ENT: Positive: Pharyngeal erythema, TM bulging, TM dull, TM red, Tonsillar swelling Dental Exam: Normal Neck exam: Normal Respiratory: Positive: Chest non-tender, No accessory muscle use, Expiration, Inspiration Cardiovascular Exam: Normal Abdominal Exam: Normal Bowel Sounds: Positive: Present Musculoskeletal Exam: Normal Neurological Exam: Normal Psychological Exam: Normal Skin Exam: Normal Respiratory Course/Dx - Course Course Of Treatment: hx obtained, exam performed ,meds reviewed, treated for respiratory infection and wheezing - Differential Dx/Diagnosis Provider Diagnosis: Sinusitis, Wheezing Discharge ED - Sign-Out/Discharge Documenting (check all that apply): Patient Departure All imaging exams completed and their final reports reviewed: No Studies - Discharge Plan Condition: Stable Disposition: HOME Prescriptions: Azithromyxin WILLIAM (NF) [Z-William (Zithromax) 250 mg tabs #6] 2 tab PO .TODAY, THEN 1 DAILY #6 tab predniSONE [Prednisone 20 MG TAB] 40 mg PO DAILY #10 tablet Patient Education Materials: Sinusitis (ED) Referrals: Kriss Meléndez MD [Primary Care Provider] - Additional Instructions: 1. take the medication as prescribed. 2. Follow up with your PCP if not improving - Billing Disposition and Condition Condition: STABLE Disposition: Home
== END 2019-08-10 13:16 | disposition home or self-care (01) ==
LOC: UCCORT 12:27
DX: J32.9 Chronic sinusitis, unspecified (principal); R06.2 Wheezing; R05 Cough; J02.9 Acute pharyngitis, unspecified; R53.83 Other fatigue; Z91.09 Other allergy status, other than to drugs and biological substances; Z88.0 Allergy status to penicillin; Z88.1 Allergy status to other antibiotic agents; Z88.2 Allergy status to sulfonamides; Z88.6 Allergy status to analgesic agent
CPT/HCPCS: 99212; G0463

== ENCOUNTER 2019-08-16 11:24 | Emergency (ER) | payer MEDICARE, OTHER ==
[2019-08-16 12:34] VITALS: BP 160/77
--- NOTE | 2019-08-16 13:01 | ED ---
Throat Pain/Nasal Congestion - HPI Summary HPI Summary: 64 yr old female with the complaint of runny nose, some mild left ear pain. Onset over a week ago. She was put on Zithromax and prednisone, and she just finished it. She states she came in because not sure if completely better yet and she also feels like she has some left ear pressure, discomfort just in the posterior auricular area. No fever or chills. - History of Current Complaint Chief Complaint: UCGeneralIllness Time Seen by Provider: 08/16/19 12:42 - Allergies/Home Medications Allergies/Adverse Reactions: Allergies Allergy/AdvReac Type Severity Reaction Status Date / Time Adhesive Tape Allergy Intermediate Blisters Verified 08/16/19 12:34 [Tegaderm Dressing] amoxicillin [From Augmentin] Allergy Rash And Verified 08/16/19 12:34 Itching cephalexin Allergy Rash Verified 08/16/19 12:34 ciprofloxacin Allergy Rash Verified 08/16/19 12:34 clavulanic acid Allergy Rash And Verified 08/16/19 12:34 [From Augmentin] Itching clindamycin Allergy Rash Verified 08/16/19 12:34 doxycycline Allergy Itching Verified 08/16/19 12:34 NSAIDS (Non-Steroidal Allergy ulcers, Hx Verified 08/16/19 12:34 Anti-Inflamma gastric bypass povidone-iodine Allergy Rash Verified 08/16/19 12:34 [From Betadine] pregabalin [From Lyrica] Allergy Anxiety Verified 08/16/19 12:34 soap [From Betadine] Allergy Rash Verified 08/16/19 12:34 Sulfa (Sulfonamide Allergy Rash Verified 08/16/19 12:34 Antibiotics) SURGICAL PREP Allergy Severe ITCHY RASH Uncoded 08/16/19 12:34 BANDAID ADHESIVE Allergy Intermediate ITCHY Uncoded 08/16/19 12:34 REDNESS ENVIRONMENTAL Allergy Intermediate ITCHY Uncoded 08/16/19 12:34 WATERY EYES, STUFFY PMH/Surg Hx/FS Hx/Imm Hx Endocrine/Hematology History: Reports: Hx Thyroid Disease, Hx Anemia - takes iron Denies: Hx Diabetes Cardiovascular History: Reports: Hx Rheumatic Fever - A CHILD Denies: Hx Hypertension, Hx Pacemaker/ICD Respiratory History: Reports: Hx Asthma, Hx Chronic Bronchitis, Hx Pneumonia, Hx Sleep Apnea Denies: Hx Chronic Obstructive Pulmonary Disease (COPD) GI History: Reports: Hx Gastroesophageal Reflux Disease - OCCASSIONAL, NO PRN MEDS USED, Other GI Disorders - bariatric surgery Denies: Hx Ulcer History: Denies: Hx Renal Disease Musculoskeletal History: Reports: Hx Arthritis, Hx Rheumatoid Arthritis, Hx Back Problems, Hx Bursitis - LEFT HIP, Hx Scoliosis, Hx Tendonitis, Other Musculoskeletal History - NECK PAIN Sensory History: Reports: Hx Contacts or Glasses - GLASSES Denies: Hx Hearing Aid Opthamlomology History: Reports: Hx Contacts or Glasses - GLASSES Neurological History: Reports: Other Neuro Impairments/Disorders - PAIN CLINIC INJECTIONS / DORSAL STIM 2013 Psychiatric History: Reports: Hx Anxiety - CONTROL WITH MEDS, Hx Depression Denies: Hx Panic Disorder - Surgical History Surgery Procedure, Year, and Place: Cataract 2017, R foot surgery Aug 2017; 2015 L2-L3 FUSION. 08/2014 DORSAL COLUMN STIMULATOR PUT IN STIMULATOR AND BATTERY AND LEADS WERE REMOVED 07/27/2015 PER [facility] [place] REPORT BY DR DEL CID; 2014 SURGERY RIGHT FOOT [facility]; 04/2013 LAMINECTOMY, [facility] [place]. RIGHT WRIST TENDON REPAIR. RIGHT WRIST/BASE THUMB CLEANED OUT ARTHRITIS; LEFT EYE CATARACT ; 1989 RIGHT HAND - GANLION CYST, [facility] [place]; 03/1985 BILATERAL TUBAL LIGATION, [facility] [place]; 2005 LAP BAND - [facility] [place]; 2008 CONVERTED TO GASTRIC BYPASS, [facility] [place]; 01/2010 LAPAROSCOPIC CHICO, [facility] [place]. 05/2011 UMBILICAL HERNIA REPAIR, [facility] [place]; 04/2012 BUNION REPAIR- RIGHT FOOT W/ SCREW, [facility]; 09/2013 RIGHT FOOT HAMMER TOE REPAIR, [place]; 04/2014 Dorsal Column Stimulator Trial, [facility] [place]; 05/2014 Permanent Dorsal Column Stimulator( SEE ABOVE) Hx Anesthesia Reactions: No Infectious Disease History: Yes Infectious Disease History: Reports: Hx Clostridium Difficile Denies: Hx Hepatitis, Hx Human Immunodeficiency Virus (HIV), Traveled Outside the [place] in Last 30 Days - Family History Known Family History: Positive: Hypertension - Social History Alcohol Use: None Hx Substance Use: No Substance Use Type: Reports: None Substance Use Comment - Amount & Last Used: fentanyl patch and oxycodone Hx Tobacco Use: No Smoking Status (MU): Never Smoked Tobacco Have You Smoked in the Last Year: No Review of Systems Constitutional: Negative Positive: Ear Ache, Nasal Discharge All Other Systems Reviewed And Are Negative: Yes Physical Exam Triage Information Reviewed: Yes Vital Signs On Initial Exam: Initial Vitals Temp Pulse Resp BP Pulse Ox 97.6 F 55 18 160/77 95 08/16/19 12:27 08/16/19 12:27 08/16/19 12:27 08/16/19 12:27 08/16/19 12:27 Vital Signs Reviewed: Yes Appearance: Positive: Well-Appearing, No Pain Distress Skin: Positive: Warm, Skin Color Reflects Adequate Perfusion Head/Face: Positive: Normal Head/Face Inspection Eyes: Positive: EOMI ENT: Positive: Normal ENT inspection, Pharynx normal, Nasal congestion, TMs normal, Other - no mastoid tenderness either side. No posterior auricular lymph nodes and no rash.. Negative: Sinus tenderness Neck: Positive: Nontender, No Lymphadenopathy Respiratory/Lung Sounds: Positive: Clear to Auscultation, Breath Sounds Present Cardiovascular: Positive: RRR. Negative: Murmur Abdomen Description: Negative: Distended Musculoskeletal: Positive: Strength/ROM Intact Neurological: Positive: Sensory/Motor Intact, Alert, Oriented to Person Place, Time, CN Intact II-III, Normal Gait, Speech Normal Psychiatric: Positive: Normal Diagnostics - Vital Signs Vital Signs Temp Pulse Resp BP Pulse Ox 08/16/19 12:27 97.6 F 55 18 160/77 95 - Laboratory Lab Statement: Any lab studies that have been ordered have been reviewed, and results considered in the medical decision making process. EENT Course/Dx - Course Course Of Treatment: 64 yr old with URI symptoms. No ear findings. DC home in good condition. - Diagnoses Provider Diagnoses: Upper respiratory infection, Hypertension Discharge ED - Sign-Out/Discharge Documenting (check all that apply): Patient Departure All imaging exams completed and their final reports reviewed: No Studies - Discharge Plan Condition: Good Disposition: HOME Patient Education Materials: Upper Respiratory Infection (DC), Hypertension (ED ) Referrals: Kriss Meléndez MD [Primary Care Provider] - 2 Weeks - Billing Disposition and Condition Condition: GOOD Disposition: Home
== END 2019-08-16 13:07 | disposition home or self-care (01) ==
LOC: UCCORT 11:24
DX: J06.9 Acute upper respiratory infection, unspecified (principal); I10 Essential (primary) hypertension; H92.02 Otalgia, left ear; D64.9 Anemia, unspecified; Z91.09 Other allergy status, other than to drugs and biological substances; Z88.1 Allergy status to other antibiotic agents; Z88.0 Allergy status to penicillin; Z88.6 Allergy status to analgesic agent; Z88.2 Allergy status to sulfonamides; Z88.8 Allergy status to other drugs, medicaments and biological substances; Z79.899 Other long term (current) drug therapy
CPT/HCPCS: 99212; G0463

== ENCOUNTER 2022-12-20 04:08 | Inpatient (IN) ==
[2022-12-20 04:53] LABS: ABS Eosinophils 0.3 10^3/uL (0.0-0.5); ABS Lymphocytes 2.2 10^3/uL (1.0-4.8); ABS Monocytes 0.5 10^3/uL (0.0-0.9); ABS Neutrophils 2.8 10^3/uL (1.5-7.6); ABS Nucleated RBC 0.01 10^3/ul; Eosinophil % 4.6 %; Hematocrit 41.3 % (35-45); Hemoglobin 13.9 g/dL (11.5-14.3); Lymphocyte % 37.7 %; Mean Corpuscular Hemoglobin 28.8 pg (27-33); Mean Corpuscular Hgb Conc 33.7 g/dL (31-36); Mean Corpuscular Volume 85.6 fL (80-97); Mean Platelet Volume 7.8 fL (7.5-11.2); Nucleated Red Blood Cells % 0.1 /100 WBC (0.0-0.4); Platelet Count 197 10^3/uL (150-450); Red Blood Count 4.82 10^6/uL (3.63-4.92); Red Cell Distribution Width 13.6 % (12-17); White Blood Count 5.9 10^3/uL (3.8-11.8)
[2022-12-20 05:41] LABS: Albumin 3.5 g/dL (3.2-5.2); Albumin/Globulin Ratio 1.4 (1-3); Calcium 7.9 mg/dL (8.6-10.3); Creatinine, Serum 0.59 mg/dL (0.51-0.95); Globulin 2.5 g/dL (2-4); Potassium 3.2 mmol/L (3.5-5.0); Total Bilirubin 0.4 mg/dL (0.2-1.0); eGFR CKD-EPI 98.1 (>60)
[2022-12-20 07:52] LABS: High Sensitivity Troponin 1 Hr 6 pg/mL (<15)
[2022-12-20] MEDS ORDERED: Potassium EFFERVES 25 meq TAB PO ONE (09:23)
[2022-12-20] MEDS ORDERED: fentaNYL 100 mcg/2 ml 50 MCG/ML VIAL IV SLOW PU ONE (09:25)
[2022-12-20] MEDS ORDERED: Albuterol HFA INHALER 8 gm MDI INH PRN (10:01)
[2022-12-20 10:15] LABS: Magnesium 1.9 mg/dL (1.9-2.7)
[2022-12-20] MEDS: metroNIDAZOLE IV 500 MG/100ML 500 MG/100 ML BAG IVPB SCH ×3 (10:53→21:14)
[2022-12-20] MEDS: Aztreonam 2 GM in NS 0.9% 100 ML 100 ML IV SCH ×2 (13:01→20:48)
[2022-12-20] MEDS: Mometasone/Formoter 100/5 MDI INH SCH (19:51)
[2022-12-20] MEDS ORDERED: Aztreonam 2 GM in NS 0.9% 100 ML 100 ML IV SCH (21:00)
[2022-12-20] MEDS: Enoxaparin 40 MG/0.4 ML SYR SUBCUT SCH (21:08)
[2022-12-20] MEDS ORDERED: fentaNYL PATCH 75 MCG/HR 1 PATCH TRANSDERM SCH (23:00)
[2022-12-21] MEDS: metroNIDAZOLE IV 500 MG/100ML 500 MG/100 ML BAG IVPB SCH ×3 (04:24→18:01)
[2022-12-21 06:43] LABS: ABS Eosinophils 0.1 10^3/uL (0.0-0.5); ABS Lymphocytes 1.4 10^3/uL (1.0-4.8); ABS Monocytes 0.8 10^3/uL (0.0-0.9); ABS Neutrophils 8.4 10^3/uL (1.5-7.6); Eosinophil % 1.1 %; Hematocrit 38.3 % (35-45); Hemoglobin 12.8 g/dL (11.5-14.3); Lymphocyte % 12.9 %; Mean Corpuscular Hemoglobin 29.1 pg (27-33); Mean Corpuscular Hgb Conc 33.4 g/dL (31-36); Mean Corpuscular Volume 87.1 fL (80-97); Mean Platelet Volume 7.9 fL (7.5-11.2); Platelet Count 176 10^3/uL (150-450); Red Cell Distribution Width 13.6 % (12-17); White Blood Count 10.8 10^3/uL (3.8-11.8)
[2022-12-21 07:02] LABS: Calcium 8.6 mg/dL (8.6-10.3); Creatinine, Serum 0.59 mg/dL (0.51-0.95); Potassium 4.2 mmol/L (3.5-5.0); eGFR CKD-EPI 98.1 (>60)
[2022-12-21] MEDS: Mometasone/Formoter 100/5 MDI INH SCH ×2 (07:39→19:44)
[2022-12-21] MEDS: SPIRIVA Respimat (tiotropium) 2.5 mcg/inh Inhaler INH SCH (07:39)
[2022-12-21] MEDS: fentaNYL Patch Check Q Shift NOTE FOLLOW UP SCH ×2 (07:41→19:10)
[2022-12-21 08:45] LABS: Magnesium 2.1 mg/dL (1.9-2.7)
[2022-12-21] MEDS: Acetaminophen IV 1 GM/100ML 1,000 MG/100 ML BAG IV PRN (10:04)
[2022-12-21] MEDS: Aztreonam 2 GM in NS 0.9% 100 ML 100 ML IV SCH ×3 (10:35→19:57)
[2022-12-21] MEDS ORDERED: Succinylcholine 200 mg VIAL 20 mg/ml 10 ml VIAL (200 mg) ONE (13:46)
[2022-12-21] MEDS ORDERED: Propofol 10 MG/ML 20 ML BTL ONE (13:46)
[2022-12-21] MEDS ORDERED: fentaNYL 100 mcg/2 ml 50 MCG/ML VIAL ONE (13:46)
[2022-12-21] MEDS ORDERED: Midazolam 2 mg/2 ml VIAL 1 mg/ml 2 ml VIAL (2 mg) ONE (13:46)
[2022-12-21] MEDS ORDERED: Famotidine IV 10 MG/ML 2 ml VIAL (20 mg) ONE (13:56)
[2022-12-21] MEDS ORDERED: Acetylcysteine INH SOL (RT) 200 MG/ML 4 ML VIAL INH ONE (14:37)
[2022-12-21] MEDS ORDERED: Albuterol/Ipratropium NEB.SOL (2.5/0.5 MG) 3 ML NEB.SOLN ONE (15:26)
[2022-12-21] MEDS: Enoxaparin 40 MG/0.4 ML SYR SUBCUT SCH (19:57)
[2022-12-22] MEDS: Acetaminophen IV 1 GM/100ML 1,000 MG/100 ML BAG IV PRN (01:42)
[2022-12-22] MEDS: metroNIDAZOLE IV 500 MG/100ML 500 MG/100 ML BAG IVPB SCH ×3 (02:01→18:10)
[2022-12-22] MEDS ORDERED: guaiFENesin 100 mg/5 ml LIQ unit dose cup PO ONE (02:06)
[2022-12-22] MEDS: Aztreonam 2 GM in NS 0.9% 100 ML 100 ML IV SCH ×3 (04:07→20:28)
[2022-12-22 06:46] LABS: Calcium 8.7 mg/dL (8.6-10.3); Creatinine, Serum 0.5 mg/dL (0.51-0.95); Potassium 4.2 mmol/L (3.5-5.0); eGFR CKD-EPI 102.1 (>60)
[2022-12-22] MEDS: fentaNYL Patch Check Q Shift NOTE FOLLOW UP SCH ×2 (07:22→19:24)
[2022-12-22] MEDS: Mometasone/Formoter 100/5 MDI INH SCH ×2 (07:35→20:17)
[2022-12-22] MEDS: SPIRIVA Respimat (tiotropium) 2.5 mcg/inh Inhaler INH SCH (07:35)
[2022-12-22] MEDS ORDERED: Senna TAB 8.6 mg TAB PO PRN (11:36)
[2022-12-22] MEDS ORDERED: Magnesium Hydroxide LIQ 30 ML UDC PO PRN (18:31)
[2022-12-22] MEDS: Enoxaparin 40 MG/0.4 ML SYR SUBCUT SCH (20:28)
[2022-12-22] MEDS ORDERED: Senna TAB 8.6 mg TAB PO SCH (21:00)
[2022-12-23] MEDS: metroNIDAZOLE IV 500 MG/100ML 500 MG/100 ML BAG IVPB SCH ×2 (02:24→09:30)
[2022-12-23] MEDS: Acetaminophen IV 1 GM/100ML 1,000 MG/100 ML BAG IV PRN (04:11)
[2022-12-23] MEDS: Aztreonam 2 GM in NS 0.9% 100 ML 100 ML IV SCH ×2 (04:38→13:53)
[2022-12-23 06:50] LABS: ABS Eosinophils 0.2 10^3/uL (0.0-0.5); ABS Lymphocytes 1.7 10^3/uL (1.0-4.8); ABS Monocytes 0.5 10^3/uL (0.0-0.9); ABS Neutrophils 4.1 10^3/uL (1.5-7.6); Eosinophil % 2.3 %; Hematocrit 35.1 % (35-45); Hemoglobin 11.8 g/dL (11.5-14.3); Lymphocyte % 26.8 %; Mean Corpuscular Hemoglobin 29.4 pg (27-33); Mean Corpuscular Hgb Conc 33.6 g/dL (31-36); Mean Corpuscular Volume 87.5 fL (80-97); Mean Platelet Volume 8.1 fL (7.5-11.2); Platelet Count 176 10^3/uL (150-450); Red Blood Count 4.01 10^6/uL (3.63-4.92); Red Cell Distribution Width 13.3 % (12-17); White Blood Count 6.5 10^3/uL (3.8-11.8)
[2022-12-23 07:01] LABS: Calcium 8.5 mg/dL (8.6-10.3); Potassium 4.2 mmol/L (3.5-5.0)
[2022-12-23 07:06] LABS: Creatinine, Serum 0.5 mg/dL (0.51-0.95); eGFR CKD-EPI 102.1 (>60)
[2022-12-23] MEDS: fentaNYL Patch Check Q Shift NOTE FOLLOW UP SCH (07:12)
[2022-12-23] MEDS: Mometasone/Formoter 100/5 MDI INH SCH ×2 (08:03→19:13)
[2022-12-23] MEDS: SPIRIVA Respimat (tiotropium) 2.5 mcg/inh Inhaler INH SCH (08:04)
[2022-12-23 10:01] VITALS: BP 135/81
[2022-12-23] MEDS ORDERED: Sodium Phosphate ADULT ENEMA 133 ML BTL PR ONE (10:18)
== END 2022-12-23 16:40 | disposition home or self-care (01) | DRG 177 ==
LOC: ED 04:08 → EDHOLD 09:11 → SUATTDRO 09:11 → MED 19:12
PROVIDERS: ADMIT Internal Medicine; ATTEND Internal Medicine

== ENCOUNTER 2023-11-07 08:05 | Observation (INO) ==
[~2023-11-07 08:05] MED LIST changes: -Buffered Lidocaine 1% SYR 3ML* 3 ML/SYR SYRINGE INTRADERM ONE; +Bupivacaine 0.5% PF 10 ML SDV VIAL INJ ONE; +Dexamethasone IV 4 MG/ML VIAL 1 ml VIAL ONE; -Famotidine IV* 10 MG/ML 2 ML (20 mg) IV ONE; +Lidocaine 2% PF 5 ML VIAL ONE; +Midazolam 2 mg/2 ml VIAL 1 mg/ml 2 ml VIAL (2 mg) ONE; -Morphine INJ* 2 MG/ML 1 ML SYRINGE IV PRN; +Ondansetron 4 mg VIAL 2 MG/ML 2 ml VIAL ONE; -PROCHLORPERAZINE INJ 5 MG/ML 2 ML VIAL IV PRN; +Phenylephrine IV 10 MG/ML 1 ml VIAL ONE; +Propofol 10 MG/ML 20 ML BTL ONE; +Sterile Water for Inj 10 ML ONE; +fentaNYL 100 mcg/2 ml 50 MCG/ML VIAL ONE; -oxyCODONE TAB* 5 MG TAB PO PRN
[2023-11-07] MEDS ORDERED: Rocuronium 50 mg VIAL 10 mg/ml 5 ml VIAL (50 mg) ONE (08:13)
[2023-11-07] MEDS ORDERED: ceFAZolin 2 GM PREMIX 2 GM/50 ML BAG ONE (08:30)
[2023-11-07] MEDS ORDERED: Tranexamic Acid 1 GM/100ML BAG 2,000 MG/200 ML BAG IV ONE (08:31)
[2023-11-07 08:57] LABS: Rapid COVID-19 Molecular Undetected (Undetected)
[2023-11-07] MEDS ORDERED: HYDROmorphone 1 MG/1 ML SYRINGE IV PRN (09:43)
[2023-11-07] MEDS ORDERED: Naloxone 0.4 mg VIAL 0.4 mg/ml 1 ml VIAL IV PRN (09:43)
[2023-11-07] MEDS ORDERED: Bupivacaine 0.5% 50 ML MDV VIAL INJ ONE (10:08)
[2023-11-07] MEDS ORDERED: Midazolam 2 mg/2 ml VIAL 1 mg/ml 2 ml VIAL (2 mg) ONE ×2 (10:11→10:34)
[2023-11-07] MEDS ORDERED: ROPIVACAINE 5 MG/ML 30 ML BTL (0.5%) ONE ×2 (10:29→10:30)
[2023-11-07] MEDS ORDERED: KETAMINE HCL 10 MG/ML 20 ml VIAL (200 MG) ONE (11:15)
[2023-11-07] MEDS ORDERED: Glycopyrrolate IV 0.2 MG/ML 1 ML VIAL ONE (11:40)
[2023-11-07] MEDS ORDERED: Magnesium Hydroxide LIQ 30 ML UDC PO PRN (11:47)
[2023-11-07] MEDS ORDERED: Ondansetron ODT 4 mg TAB 4 MG TAB PO PRN (11:47)
[2023-11-07] MEDS ORDERED: Lactulose 30 ml UDC PO PRN (11:47)
[2023-11-07] MEDS ORDERED: Ondansetron 4 mg VIAL 2 MG/ML 2 ml VIAL IV PRN (11:47)
[2023-11-07] MEDS ORDERED: Morphine 2 MG/ML SYRINGE IV PRN (11:47)
[2023-11-07] MEDS ORDERED: Acetaminophen IV 1 GM/100ML 1,000 MG/100 ML BAG IV ONE (11:54)
[2023-11-07] MEDS ORDERED: Propofol 10 MG/ML 20 ML BTL ONE (13:16)
[2023-11-07] MEDS: Buffered Lidocaine 1% SYRIN 1 ml INTRADERM ONE (16:04)
[2023-11-07] MEDS: Lactated Ringers 1000 ml BAG 1,000 ML IV SCH ×2 (16:05→16:41)
[2023-11-07] MEDS ORDERED: Albuterol HFA INHALER 8 gm MDI INH PRN (16:14)
[2023-11-07] MEDS: Morphine ER 15 mg TAB ** extended release PO SCH (16:40)
[2023-11-07] MEDS: fentaNYL PATCH 75 MCG/HR 1 PATCH TRANSDERM SCH (17:51)
[2023-11-07] MEDS: fentaNYL Patch Check Q Shift NOTE FOLLOW UP SCH (18:57)
[2023-11-07] MEDS: Mometasone/Formoter 100/5 MDI INH SCH (20:19)
[2023-11-07] MEDS: ceFAZolin 1 GM ADVAN 1 GM in NS 0.9% 50 ML 50 ML IVPB SCH (20:51)
[2023-11-07] MEDS: Magnesium Hydroxide LIQ 30 ML UDC PO SCH (20:55)
[2023-11-08 06:16] LABS: Hematocrit 32.6 % (35-45); Hemoglobin 10.8 g/dL (11.5-14.3); Mean Platelet Volume 7.4 fL (7.5-11.2); Platelet Count 203 10^3/uL (150-450)
[2023-11-08] MEDS: SPIRIVA Respimat (tiotropium) 2.5 mcg/inh Inhaler INH SCH (08:10)
[2023-11-08 08:31] LABS: Calcium 8.5 mg/dL (8.6-10.3); Creatinine, Serum 0.52 mg/dL (0.51-0.95); Potassium 4.1 mmol/L (3.5-5.0); eGFR CKD-EPI 100.5 (>60)
[2023-11-08] MEDS: Vitamin THERAPEUTIC TAB PO SCH (08:54)
[2023-11-08] MEDS ORDERED: Morphine ER 30 mg TAB ** extended release PO SCH (11:00)
[2023-11-09] MEDS: Saline NASAL SPRAY 0.65% BTL BOTH NARES PRN (02:30)
[2023-11-09 05:28] LABS: Hematocrit 32.8 % (35-45); Mean Platelet Volume 7.3 fL (7.5-11.2); Platelet Count 222 10^3/uL (150-450)
[2023-11-09 11:05] VITALS: BP 139/68
== END 2023-11-09 12:00 | disposition home or self-care (01) ==
LOC: OR 08:05 → SSU 08:05
PROVIDERS: ADMIT Orthopaedic Surgery Adult Reconstructive Orthopaedic Surgery; ATTEND Orthopaedic Surgery Adult Reconstructive Orthopaedic Surgery

== ENCOUNTER 2024-07-01 09:22 | Observation (INO) ==
[~2024-07-01 09:22] MED LIST changes: +Bupivacaine 0.25% SDV 30 ML ONE; -Bupivacaine 0.5% PF 10 ML SDV VIAL INJ ONE; -Dexamethasone IV 4 MG/ML VIAL 1 ml VIAL ONE; +Lidocaine 1% w EPI 1:100,000 MDV 20 ML VIAL ONE; -Lidocaine 2% PF 5 ML VIAL ONE; -Midazolam 2 mg/2 ml VIAL 1 mg/ml 2 ml VIAL (2 mg) ONE; -Ondansetron 4 mg VIAL 2 MG/ML 2 ml VIAL ONE; -Phenylephrine IV 10 MG/ML 1 ml VIAL ONE; -Propofol 10 MG/ML 20 ML BTL ONE; -Sterile Water for Inj 10 ML ONE; +Thrombin 5,000 UNITS 1 APPLIC KIT - topical use - TOPICAL ONE; +Tranexamic Acid 1 GM/100ML BAG 2,000 MG/200 ML BAG IV ONE; +ceFAZolin VIAL VIAL ONE; -fentaNYL 100 mcg/2 ml 50 MCG/ML VIAL ONE
[2024-07-01] MEDS ORDERED: Chlorhexidine MOUTHWASH 0.12% 15 ML UDC ONE (10:06)
[2024-07-01] MEDS ORDERED: Famotidine IV 10 MG/ML 2 ml VIAL (20 mg) ONE ×2 (10:06→14:25)
[2024-07-01] MEDS ORDERED: Dexamethasone IV 4 MG/ML VIAL 1 ml VIAL ONE ×2 (10:06→11:00)
[2024-07-01] MEDS ORDERED: Clindamycin 900 MG/50 **NS BAG 900 MG/50 ML BAG ONE (10:06)
[2024-07-01] MEDS: Dexamethasone IV 4 MG/ML VIAL 1 ml VIAL IV SLOW PU ONE (10:21)
[2024-07-01] MEDS: Famotidine IV 10 MG/ML 2 ml VIAL (20 mg) IV ONE (10:21)
[2024-07-01] MEDS: Lactated Ringers 1000 ml BAG 1,000 ML IV SCH ×3 (10:22→21:20)
[2024-07-01 10:40] LABS: Rapid COVID-19 Molecular Undetected (Undetected)
[2024-07-01] MEDS ORDERED: Rocuronium 50 mg VIAL 10 mg/ml 5 ml VIAL (50 mg) ONE ×2 (11:00→15:26)
[2024-07-01] MEDS ORDERED: Ondansetron 4 mg VIAL 2 MG/ML 2 ml VIAL ONE (11:00)
[2024-07-01] MEDS ORDERED: Lidocaine 2% PF 5 ML VIAL ONE (11:00)
[2024-07-01] MEDS ORDERED: Propofol 10 MG/ML 20 ML BTL ONE (11:00)
[2024-07-01] MEDS ORDERED: fentaNYL 100 mcg/2 ml 50 MCG/ML VIAL ONE ×3 (11:01→17:17)
[2024-07-01] MEDS ORDERED: Midazolam 2 mg/2 ml VIAL 1 mg/ml 2 ml VIAL (2 mg) ONE (11:01)
[2024-07-01] MEDS ORDERED: Glycopyrrolate IV 0.2 MG/ML 1 ML VIAL ONE (13:45)
[2024-07-01] MEDS ORDERED: Lidocaine 1% w EPI 1:100,000 MDV 20 ML VIAL ONE (14:08)
[2024-07-01] MEDS ORDERED: ceFAZolin VIAL VIAL ONE (14:09)
[2024-07-01] MEDS ORDERED: Thrombin 5,000 UNITS(BOVINE) for Ultrasound Guided Pseudoaneursym ONE (14:09)
[2024-07-01] MEDS ORDERED: ceFAZolin 2 GM PREMIX 2 GM/50 ML BAG ONE (14:23)
[2024-07-01] MEDS ORDERED: HYDROmorphone 0.5 MG/0.5 ML SYRINGE ONE (16:05)
[2024-07-01] MEDS ORDERED: Calcium Carb (TUMS) 500 mg CHEW TAB PO PRN (16:55)
[2024-07-01] MEDS ORDERED: Benzocaine/Menthol LOZ MT PRN (16:55)
[2024-07-01] MEDS ORDERED: Phenol 1.4% Throat Spray BTL MT PRN (16:55)
[2024-07-01] MEDS ORDERED: Dextran 70/Hypromellose Tears Eye Drops 15 ml BTL (for Artificials Tears) BOTH EYES PRN (16:55)
[2024-07-01] MEDS ORDERED: Magnesium Hydroxide LIQ 30 ML UDC PO PRN (16:55)
[2024-07-01] MEDS ORDERED: Albuterol HFA INHALER 8 gm MDI INH PRN (16:59)
[2024-07-01] MEDS ORDERED: Naloxone 0.4 mg VIAL 0.4 mg/ml 1 ml VIAL IV PRN (17:16)
[2024-07-01] MEDS ORDERED: Ondansetron 4 mg VIAL 2 MG/ML 2 ml VIAL IV PRN (17:16)
[2024-07-01] MEDS ORDERED: Metoclopramide 5 MG/ML VIAL (10 mg) IV PRN (17:16)
[2024-07-01] MEDS ORDERED: HYDROmorphone 1 MG/1 ML SYRINGE IV SLOW PU PRN (17:17)
[2024-07-01] MEDS: fentaNYL 100 mcg/2 ml 50 MCG/ML VIAL IV PRN (17:22)
[2024-07-01] MEDS ORDERED: NS 0.45% 1000 ml BAG 1,000 ML IV SCH (18:00)
[2024-07-01] MEDS: Buffered Lidocaine 1% SYRIN 1 ml INTRADERM ONE ×2 (21:04→21:05)
[2024-07-01] MEDS: Acetaminophen IV 1 GM/100ML 1,000 MG/100 ML BAG IV ONE (21:05)
[2024-07-01] MEDS: Scopolamine 1 mg/72hr PATCH TRANSDERM ONE (21:05)
[2024-07-01] MEDS: Senna TAB 8.6 mg TAB PO SCH (22:12)
[2024-07-01] MEDS: Calcium Citrate 200 mg TAB PO SCH (22:12)
[2024-07-01] MEDS: fentaNYL PATCH 75 MCG/HR 1 PATCH TRANSDERM SCH (22:15)
[2024-07-01] MEDS: fentaNYL Patch Check Q Shift NOTE FOLLOW UP SCH (22:18)
[2024-07-01] MEDS: Mometasone/Formoter 100/5 MDI INH SCH (22:51)
[2024-07-02] MEDS: SPIRIVA Respimat (tiotropium) 2.5 mcg/inh Inhaler INH SCH (07:35)
[2024-07-02] MEDS: Potassium Chlor 10 meq TAB PO SCH (08:39)
[2024-07-03 10:00] VITALS: BP 133/58
== END 2024-07-03 12:00 | disposition home or self-care (01) ==
LOC: OR 09:22 → SSU 09:22
PROVIDERS: ADMIT Neurological Surgery; ATTEND Neurological Surgery